=== PATIENT | male | born 1945 | race Caucasian/White ===

== ENCOUNTER → 2022-01-08 | Outpatient (CLI) | payer OTHER ==
--- NOTE | 2022-01-08 14:13 | XR ---
EXAMINATION TYPE: XR shoulder limited RT DATE OF EXAM: 01/08/2022 1:58 PM INDICATION: Patient age:Male; 76 years old; Reason for study: M25.51 Pain in right shoulder; COMPARISON: None TECHNIQUE: The right shoulder was examined in the middle and scapular Y projections. . FINDINGS: Deformity of the right humeral head which limits evaluation for acute fracture. Degeneration changes of the before meals and glenohumeral joint. Calcification projects over the right axilla which may be in the scapula measuring 2.2 x 3.0 cm.. IMPRESSION: Right humeral head degeneration, superimposed fracture not entirely excluded given heterotrophic calc ifications and degeneration. Consider CT for complete evaluation of the right shoulder if there remai ns concern for fracture.
== END | disposition home or self-care (01) ==
LOC: RADXRMAIN 13:23
PROVIDERS: ATTEND Nurse Practitioner Family
DX: M25.511 Pain in right shoulder (principal)

== ENCOUNTER 2022-06-14 21:04 | Emergency (ER) | payer OTHER ==
[2022-06-14 21:14] VITALS: RESP 16; TEMP 97.6
--- NOTE | 2022-06-14 22:30 | ED ---
Fall HPI - General Chief Complaint: Fall Stated Complaint: Fall, Head Injury Time Seen by Provider: 06/14/22 21:13 Source: patient, EMS, RN notes reviewed, old records reviewed Mode of arrival: EMS Limitations: language barrier, altered mental status, physical limitation - History of Present Illness Initial Comments: This is a 77-year-old male DF for evaluation. Patient does suffer from mild mental status and dementia, patient does have history of recurrent occasional falls. Patient lives with granddaughter who brought to the hospital today. Patient did fall forward hitting head on Route potted plants. Did sustain significant laceration to the top of his head no loss of consciousness he is on blood thinners. No other injury from fall noted. 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 ROS Other: All systems not noted in ROS Statement are negative. General Exam - General Exam Comments Initial Comments: Patient does have a 3 cm laceration to his frontal aspect of his occiput. Significant bleeding, arterial bleeding from laceration Limitations: no limitations General appearance: alert, in no apparent distress Head exam: Present: atraumatic, normocephalic, normal inspection Eye exam: Present: normal appearance, PERRL, EOMI. Absent: scleral icterus, con junctival injection, periorbital swelling ENT exam: Present: normal exam, mucous membranes moist Neck exam: Present: normal inspection. Absent: tenderness, meningismus, lymphadenopathy Respiratory exam: Present: normal lung sounds bilaterally. Absent: respiratory distress, wheezes, rales, rhonchi, stridor Cardiovascular Exam: Present: regular rate, normal rhythm, normal heart sounds. Absent: systolic murmur, diastolic murmur, rubs, gallop, clicks GI/Abdominal exam: Present: soft, normal bowel sounds. Absent: distended, tenderness, guarding, rebound, rigid Extremities exam: Present: normal inspection, full ROM, normal capillary refill. Absent: tenderness, pedal edema, joint swelling, calf tenderness Back exam: Present: normal inspection Neurological exam: Present: alert, oriented X3, CN II-XII intact Psychiatric exam: Present: normal affect, normal mood Skin exam: Present: warm, dry, intact, normal color. Absent: rash Course Vital Signs 06/14/22 21:11 Temperature 97.6 F Pulse Rate 71 Respiratory 16 Rate Blood Pressure 196/85 O2 Sat by Pulse 96 Oximetry - Reevaluation(s) Reevaluation #1: 06/14/22 22:25 Medical record is reviewed Reevaluation #2: 06/14/22 22:25 Patient's bleeding is resolved here in the ER Patient's bleeding was stopped using both marisa as well as absorbable figure 8 sutures Reevaluation #3: 06/14/22 22:26 Patient informed results questions answered no syncope here in the ER Reevaluation #4: 06/14/22 22:26 Was pt. sent in by a medical professional or institution? @ -no Did you speak to anyone other than the patient for history? @ -yes family at bedside Did you review nursing and triage notes? @ -agree Were old charts reviewed? @ -yes Differential Diagnosis? @ -no EKG interpreted by me (3pts min.)? @ -no X-rays interpreted by me (1pt min.)? @ -no CT interpreted by me (1pt min.)? @ -no U/S interpreted by me (1pt. min.)? @ -no What testing was considered but not performed? (CT, X-rays, U/S, labs)? Why? @ no What meds were considered but not given? Why? @ -no Did you discuss the management of the patient with other professionals? @ -no Did you reconcile home meds? @ -no Was smoking cessation discussed for >3mins.? @ -no Was critical care preformed (if so, how long)? @ -no Were there social determinants of health that impacted care today? How? (Homelessness, low income, unemployed, alcoholism, drug addiction, transportation, low edu. Level, literacy, decrease access to med. care, [facility], rehab)? @ -no Was there de-escalation of care discussed even if they declined? (Discuss DNR or withdrawal of care, Hospice)? @ -no What co-morbidities impacted this encounter? (DM, HTN, Smoking, COPD, CAD, Cancer, CVA, Hep., AIDS, mental health diagnosis, sleep apnea, morbid obesity)? @ -no Was patient admitted / discharged? @ -dc Undiagnosed new problem with uncertain prognosis? @ -no Drug Therapy requiring intensive monitoring for toxicity (Heparin, Nitro, Insulin, Cardizem)? @ -no Were any procedures done? @ -sutures and marisa Diagnosis/symptom? @ -fall, scalp laceration Acute, or Chronic, or Acute on Chronic? @ -acute Uncomplicated (without systemic symptoms) or Complicated (systemic symptoms)? @ -complicated w arterial bleed Side effects of treatment? @ -no Exacerbation, Progression, or Severe Exacerbation] @ -no Poses a threat to life or bodily function? @ -no Procedures - Laceration Laceration #1 Consent Obtained: verbal consent Indication: laceration Site: scalp Size (cm): 3 Description: linear Depth: simple, single layer Sedation/Analgesia: midazolam Anesthesia Technique: local infiltration Type of Sutures: vicryl Size of Sutures: 5-0, other Complications: pain Patient Tolerated Procedure: well Medical Decision Making - Medical Decision Making 77 male to the emergency department for evaluation patient presents today for evaluation in regards to fall from standing mechanical fall from standing, did sustain laceration to his scalp which is repaired here in the ER. Laceration was 3 cm in length. Patient also had suture repair of arterial laceration. - Radiology Data Radiology results: report reviewed (CT brain C-spine negative for acute injury), image reviewed Disposition Clinical Impression: Fall, Scalp laceration, Arterial hemorrhage Disposition: HOME SELF-CARE Condition: Good Instructions (If sedation given, give patient instructions): Fall Prevention for Older Adults (ED) Is patient prescribed a controlled substance at d/c from ED?: No Referrals: None,Stated [Primary Care Provider] - 1-2 days Time of Disposition: 22:50
[2022-06-14 23:26] VITALS: BP 164/92; PULSE 78
--- NOTE | 2022-06-14 23:35 | CT ---
EXAMINATION TYPE: CT brain christian mandel DATE OF EXAM: 06/14/2022 COMPARISON: None HISTORY: fall CT DLP: 1539.[address] of the brain was performed. The ventricles, basal cisterns and sulci overlying the cerebral convexities demonstrate mild enlargem ent. Remote insult right MCA territory. There is no evidence for intracranial hemorrhage or sulcal effacement. There is decreased attenuatio n about the periventricular white matter and deep white matter of both cerebral hemispheres, compatib le with chronic small vessel ischemia. No mass effects are seen. If symptoms persist consider MRI. Osseous calvarium is intact. There is a frontal scalp hematoma and laceration with skin marisa in pl [place]. IMPRESSION: 1. Age related atrophic and chronic small vessel ischemic change without acute intracranial process seen at this time. CT Cervical Spine: Unenhanced CT of the cervical spine was performed with bone and soft tissue window settings submitted . Coronal and sagittal reconstruction is obtained. There is normal alignment and prevertebral soft tissues. No evidence for acute cervical fracture . Scattered degenerative disc disease and spondylosis. Biapical scarring. IMPRESSION: 1. No evidence for acute fracture or subluxation of the cervical spine.
== END 2022-06-14 23:57 | disposition home or self-care (01) ==
LOC: EC 21:04
DX: S01.01XA Laceration without foreign body of scalp, initial encounter (principal); R58 Hemorrhage, not elsewhere classified; Z88.8 Allergy status to other drugs, medicaments and biological substances; W01.0XXA Fall on same level from slipping, tripping and stumbling without subsequent striking against object, initial encounter; Y92.009 Unspecified place in unspecified non-institutional (private) residence as the place of occurrence of the external cause
CPT/HCPCS: 12002; 70450; 72125; 99285

== ENCOUNTER 2022-07-23 13:08 | Inpatient (IN) | payer OTHER ==
--- NOTE | 2022-07-23 14:12 | ED ---
Eye Problem HPI - General Source: patient Mode of arrival: ambulatory Limitations: no limitations <Mahi Fleming - Last Filed: 07/23/22 15:57> - History of Present Illness chief complaint: eye pain, eye redness Onset Description: gradual Location: left eye Place: home If Injury: none Eye Symptoms: redness, pain, discharge, blurry vision Severity: moderate Severity scale (1-10): 8 If Pain, Quality: aching Consistency: constant Associated Symptoms: none Treatments Prior to Arrival: none <Justin Riddle - Last Filed: 07/23/22 16:47> - General Chief complaint: Eye Problems Stated complaint: left eye redness/left ear pain Time Seen by Provider: 07/23/22 13:58 - History of Present Illness Initial comments: Patient is 77-year-old male presenting to the emergency room with a caregiver from [place] for further evaluation of redness, pain and swelling to his left eye which began suddenly earlier today. He is also complaining of persistent pain ongoing for a few weeks to his left ear. He was treated for cerumen impaction and debrox drops. He reports some unsteadiness in his gait but he relates this to his ear; he denies any tinnitus and has chronic severe hearing loss. He denies any trauma. He does report some vision impairment in the left eye but is able to see. He denies any headache, dizziness, new focal neurological deficits, changes in chronic left-sided facial droop, chest pain, shortness of breath, fevers or chills. He has a past medical history significant for diabetes, TBI, hypertension and hyperlipidemia. (Mahi Fleming) - Related Data Allergies Allergy/AdvReac Type Severity Reaction Status Date / Time nkda Allergy Unknown Uncoded 07/23/22 13:19 Review of Systems ROS Other: All systems not noted in ROS Statement are negative. <Mahi Fleming - Last Filed: 07/23/22 15:57> ROS Other: All systems not noted in ROS Statement are negative. <Justin Riddle - Last Filed: 07/23/22 16:47> ROS Statement: Those systems with pertinent positive or pertinent negative responses have been documented in the HPI. Past Medical History Past Medical History: Diabetes Mellitus, Hyperlipidemia, Hypertension Additional Past Medical History / Comment(s): TBI History of Any Multi-Drug Resistant Organisms: None Reported Past Surgical History: Tonsillectomy Past Psychological History: No Psychological Hx Reported Smoking Status: Former smoker Past Alcohol Use History: None Reported Past Drug Use History: None Reported <LonnieMahi - Last Filed: 07/23/22 15:57> General Exam Limitations: no limitations Head exam: Present: atraumatic, other (Left mouth droop chronic) Eye exam: Present: conjunctival injection, periorbital swelling, periorbital tenderness. Absent: PERRL, EOMI, scleral icterus, nystagmus Pupils: Present: miosis (bilateral) Expanded IOP (R) in mmH IOP (L) in mmH IOP measured with: [employer] ENT exam: Present: normal external ear exam Expanded Ear exam: Present: other (Very hard of hearing) TM/Canal exam: Erythema: Left TM, Canal Tenderness: Left TM Neck exam: Present: normal inspection, full ROM Respiratory exam: Present: normal lung sounds bilaterally. Absent: respiratory distress, wheezes, rales, rhonchi, stridor Cardiovascular Exam: Present: regular rate, normal rhythm, normal heart sounds. Absent: systolic murmur, diastolic murmur, rubs, gallop, clicks GI/Abdominal exam: Present: soft, normal bowel sounds. Absent: distended, tenderness, guarding, rebound, rigid Extremities exam: Present: normal inspection, full ROM, pedal edema (trace bilateral). Absent: tenderness Back exam: Present: normal inspection Neurological exam: Present: alert, oriented X3, other (Poor history) Psychiatric exam: Present: flat affect Skin exam: Present: other (Ocular abnormality as indicated above.) <Mahi Fleming - Last Filed: 07/23/22 15:57> Course <Justin Riddle - Last Filed: 07/23/22 16:47> Vital Signs 07/23/22 13:10 Temperature 97.2 F L Pulse Rate 67 Respiratory 20 Rate Blood Pressure 171/72 O2 Sat by Pulse 96 Oximetry - Reevaluation(s) Reevaluation #1: 07/23/22 16:46 Medical records reviewed (Justin Riddle) Reevaluation #2: 07/23/22 16:46 Patient symptoms are improved (Justin Riddle) Reevaluation #3: 07/23/22 16:46 Patient informed results questions answered (Justin Riddle) - Consultations Consultation #1: Spoke with sound regarding symptoms patient will be admitted (Justin Riddle) Medical Decision Making - Lab Data Result diagrams: 07/23/22 14:36 07/23/22 14:36 <Mahi Fleming - Last Filed: 07/23/22 15:57> - Lab Data Result diagrams: 07/23/22 14:36 07/23/22 14:36 - Radiology Data Radiology results: report reviewed (CT orbits does show periorbital cellulitis), image reviewed <Justin Riddle - Last Filed: 07/23/22 16:47> - Medical Decision Making Was pt. sent in by a medical professional or institution ([facility], PURCHASING COORDINATOR, urgent care, hospital, or alf...) When possible be specific @ -[No] Did you speak to anyone other than the patient for history (EMS, parent, family, police, friend...)? What history was obtained from this source @ -Yes, brief history known to [facility] provider with patient obtained in addition to information available on chart and with patient. Did you review nursing and triage notes (agree or disagree)? Why? @ -[I reviewed and agree with nursing and triage notes] Were old charts reviewed (outside hosp., previous admission, EMS record, old EKG, old radiological studies, urgent care reports/EKG's, alf records)? Report findings @ -Yes, reviewed records from [place] which has home medication list and picture outpatient with previously present left facial droop. Differential Diagnosis (chest pain, altered mental status, abdominal pain women, abdominal pain men, vaginal bleeding, weakness, fever, dyspnea, syncope, headache, dizziness, GI bleed, back pain, seizure, CVA, palpatations, mental health, musculoskeletal)? @ -Differential ocular pain and swelling: Ocular trauma, orbital cellulitis, retinal detachment, viral conjunctivitis, bacterial conjunctivitis, ALLERGIC conjunctivitis, blepharitis, viscous hemorrhage, ruptured globe this is not meant to be an all-inclusive list. EKG interpreted by me (3pts min.). @ -[None done] X-rays interpreted by me (1pt min.). @ -[None done] CT interpreted by me (1pt min.). @ -Computed tomography scan of orbits with contrast ordered and pending. U/S interpreted by me (1pt. min.). @ -[None done] What testing was considered but not performed or refused? (CT, X-rays, U/S, labs)? Why? @ -[None] What meds were considered but not given or refused? Why? @ -[None] Did you discuss the management of the patient with other professionals (professionals i.e. , PA, PURCHASING COORDINATOR, lab, RT, psych nurse, social service agency director, enterprise infrastructure architect, teacher, chief investment officer, adult protective caseworker)? Give summary @ -[No] Was smoking cessation discussed for >3mins.? @ -[No] Was critical care preformed (if so, how long)? @ -[No] Were there social determinants of health that impacted care today? How? (Homelessness, low income, unemployed, alcoholism, drug addiction, transportation, low edu. Level, literacy, decrease access to med. care, prison, rehab)? @ -[No] Was there de-escalation of care discussed even if they declined (Discuss DNR or withdrawal of care, Hospice)? DNR status @ -[No] What co-morbidities impacted this encounter? (DM, HTN, Smoking, COPD, CAD, Cancer, CVA, ARF, Chemo, Hep., AIDS, mental health diagnosis, sleep apnea, morbid obesity)? @ -[None] Was patient admitted / discharged? Hospital course, mention meds given and route, prescriptions, significant lab abnormalities, going to OR and other pertinent info. @ -77-year-old male presenting to the emergency room with a caregiver from [place] for further evaluation of redness, pain and swelling to his left eye which began suddenly earlier today. He is also complaining of persistent pain ongoing for a few weeks to his left ear. Visual acuity in. However there is concern regarding ability to understand and complete visual acuity due to severe hard of hearing and previous TBI. Intraocular pressures normal. High concern for orbital cellulitis will obtain laboratory studies of CBC, CMP, lactic acid, blood cultures and order a CT of the orbits with contrast. Vital signs stable at this time no indication for IV hydration or IV antibiotics. Pain level stable and denies any analgesic need. CBC with white count elevated 10.7, neutrophils 8.0 no other abnormalities on CBC, coags normal. CMP sodium level 174 glucose elevated 174 otherwise no a bnormalities, normal renal function, normal hepatic function. Lactic acid normal at 1.0. Awaiting computed tomography scan for completion of evaluation and determination of treatment. Case discussed with and transferred to Dr. Riddle for completion of workup and disposition. (Mahi Fleming) 77 male he presents today for evaluation regards to left preseptal and periorbi harry cellulitis. Patient admitted for IV antibiotics (Justin Riddle) - Lab Data Lab Results 07/23/22 07/23/22 07/23/22 Range/Units 14:36 14:36 14:36 WBC 10.7 H (3.8-10.6) k/uL RBC 4.44 (4.30-5.90) m/uL Hgb 14.3 (13.0-17.5) gm/dL Hct 43.2 (39.0-53.0) % MCV 97.4 (80.0-100.0) fL MCH 32.2 (25.0-35.0) pg MCHC 33.1 (31.0-37.0) g/dL RDW 12.9 (11.5-15.5) % Plt Count 181 (150-450) k/uL MPV 8.5 Neutrophils % 75 % Lymphocytes % 15 % Monocytes % 5 % Eosinophils % 3 % Basophils % 1 % Neutrophils # 8.0 H (1.3-7.7) k/uL Lymphocytes # 1.6 (1.0-4.8) k/uL Monocytes # 0.5 (0-1.0) k/uL Eosinophils # 0.4 (0-0.7) k/uL Basophils # 0.1 (0-0.2) k/uL PT 10.2 (9.0-12.0) sec INR 1.0 (<1.2) Sodium 136 L (137-145) mmol/L Potassium 4.4 (3.5-5.1) mmol/L Chloride 102 (98-107) mmol/L Carbon Dioxide 25 (22-30) mmol/L Anion Gap 9 mmol/L BUN 17 (9-20) mg/dL Creatinine 0.68 (0.66-1.25) mg/dL Est GFR (CKD-EPI)AfAm >90 (>60 ml/min/1.73 sqM) Est GFR (CKD-EPI)NonAf >90 (>60 ml/min/1.73 sqM) Glucose 174 H (74-99) mg/dL Plasma Lactic Acid Luc (0.7-2.0) mmol/L Calcium 9.5 (8.4-10.2) mg/dL Total Bilirubin 0.6 (0.2-1.3) mg/dL AST 28 (17-59) U/L ALT 25 (4-49) U/L Alkaline Phosphatase 79 (38-126) U/L Total Protein 6.8 (6.3-8.2) g/dL Albumin 4.0 (3.5-5.0) g/dL 07/23/22 Range/Units 14:36 WBC (3.8-10.6) k/uL RBC (4.30-5.90) m/uL Hgb (13.0-17.5) gm/dL Hct (39.0-53.0) % MCV (80.0-100.0) fL MCH (25.0-35.0) pg MCHC (31.0-37.0) g/dL RDW (11.5-15.5) % Plt Count (150-450) k/uL MPV Neutrophils % % Lymphocytes % % Monocytes % % Eosinophils % % Basophils % % Neutrophils # (1.3-7.7) k/uL Lymphocytes # (1.0-4.8) k/uL Monocytes # (0-1.0) k/uL Eosinophils # (0-0.7) k/uL Basophils # (0-0.2) k/uL PT (9.0-12.0) sec INR (<1.2) Sodium (137-145) mmol/L Potassium (3.5-5.1) mmol/L Chloride (98-107) mmol/L Carbon Dioxide (22-30) mmol/L Anion Gap mmol/L BUN (9-20) mg/dL Creatinine (0.66-1.25) mg/dL Est GFR (CKD-EPI)AfAm (>60 ml/min/1.73 sqM) Est GFR (CKD-EPI)NonAf (>60 ml/min/1.73 sqM) Glucose (74-99) mg/dL Plasma Lactic Acid Luc 1.0 (0.7-2.0) mmol/L Calcium (8.4-10.2) mg/dL Total Bilirubin (0.2-1.3) mg/dL AST (17-59) U/L ALT (4-49) U/L Alkaline Phosphatase (38-126) U/L Total Protein (6.3-8.2) g/dL Albumin (3.5-5.0) g/dL Disposition <Mahi Fleming - Last Filed: 07/23/22 15:57> Is patient prescribed a controlled substance at d/c from ED?: No Time of Disposition: 16:45 <Justin Riddle - Last Filed: 07/23/22 16:47> Clinical Impression: Preseptal cellulitis, Periorbital cellulitis, Cellulitis of left eyelid Disposition: ADMITTED IP TO THIS HOSP Condition: Good Referrals: Cristobal Brunner MD [Primary Care Provider] - 1-2 days
[2022-07-23 14:55] LABS: Basophils # (A) 0.1 k/uL (0-0.2); Basophils % (A) 1 %; Eosinophils # (A) 0.4 k/uL (0-0.7); Eosinophils % (A) 3 %; HCT 43.2 % (39.0-53.0); HGB 14.3 gm/dL (13.0-17.5); Lymphocytes # (A) 1.6 k/uL (1.0-4.8); Lymphocytes % (A) 15 %; MCH 32.2 pg (25.0-35.0); MCHC 33.1 g/dL (31.0-37.0); MCV 97.4 fL (80.0-100.0); Mean Platelet Volume 8.5; Monocytes # (A) 0.5 k/uL (0-1.0); Monocytes % (A) 5 %; Neutrophils % (A) 75 %; Platelet Count 181 k/uL (150-450); RBC 4.44 m/uL (4.30-5.90); RDW 12.9 % (11.5-15.5); WBC 10.7 k/uL (3.8-10.6)
[2022-07-23 14:57] LABS: ALT 25 U/L (4-49); African American GFR (CKD) >90 (>60 ml/min/1.73 sqM); Anion Gap 9 mmol/L; Blood Urea Nitrogen 17 mg/dL (9-20); Calcium 9.5 mg/dL (8.4-10.2); Carbon Dioxide 25 mmol/L (22-30); Chloride 102 mmol/L (98-107); Glucose 174 mg/dL (74-99); Non-African American GFR(CKD) >90 (>60 ml/min/1.73 sqM); Sodium 136 mmol/L (137-145); Total Bilirubin 0.6 mg/dL (0.2-1.3); Total Protein 6.8 g/dL (6.3-8.2)
[2022-07-23 15:01] LABS: Prothrombin Time 10.2 sec (9.0-12.0)
[2022-07-23 15:31] LABS: AST 28 U/L (17-59); Alkaline Phosphatase 79 U/L (38-126); Potassium 4.4 mmol/L (3.5-5.1)
--- NOTE | 2022-07-23 16:23 | CT ---
EXAMINATION TYPE: CT orbits w con DATE OF EXAM: 07/23/2022 COMPARISON: None HISTORY: 77-year-old male left eye pain with swelling and erythema TECHNIQUE: Contiguous axial scanning of the orbits performed with IV Contrast, patient injected with 100 mL of Isovue 300. Coronal/sagittal reconstructions performed. CT DLP: 442.3 mGycm Automated exposure control for dose reduction was used. FINDINGS: Extensive encephalomalacia in the right cerebral hemisphere within the MCA territory compatible with prior infarct. There is leftward septal deviation. Scattered trace mucosal thickening throughout the ethmoid air savage ls and maxillary sinuses. There is preseptal soft tissue swelling on the left especially on the lateral aspect and involving th e lacrimal gland. Low. Symmetric. No post septal abnormality or extraocular muscle abnormality is see n. There are no retained radiopaque foreign body is seen. IMPRESSION: FINDINGS OF LEFT-SIDED PRESEPTAL CELLULITIS. INFLAMMATION EXTENDS TO INVOLVE THE LEFT LACRIMAL GLAND WELL. OTHERWISE, NO POST SEPTAL EXTENSION SEEN.
[2022-07-23] MEDS ORDERED: VANCOMYCIN IV PER PHARMACY 1 EACH MISC MISCELLANE PRN (16:42)
[2022-07-23] MEDS ORDERED: DEXAMETHASONE SOD PHOSPHATE 10 MG/ML 1 ML VIAL IVP STA (16:42)
[2022-07-23] MEDS ORDERED: VANCOMYCIN 1,500 MG in SODIUM CHLORIDE 0.9% 500 ML 500 ML IVPB STA (16:49)
[2022-07-23] MEDS ORDERED: NALOXONE 0.4 MG/ML 1 ML VIAL IV PRN ×2 (17:16→17:47)
[2022-07-23] MEDS ORDERED: ACETAMINOPHEN TAB 325 MG TAB PO PRN (17:16)
[2022-07-23] MEDS ORDERED: DEXTROSE 50% SYRINGE 50 ML IVP PRN ×2 (17:17)
--- NOTE | 2022-07-23 17:22 | P.HPIM ---
History of Present Illness H&P Date: 07/23/22 Patient is a 77-year-old male with a history of hypertension, dyslipidemia, diabetes presenting with eye swelling and pain. He claims that he started within 24 hours. He has some pain with movement. He denies any significant visual loss. He denies any fevers or chills. He denies any chest pain, shortness of breath, abdominal pain, nausea, vomiting or urinary complaints. He does note some ear fullness on the left side as well. In the ED, temperature was 97.2, pulse 67, respiratory rate 20, blood pressure 171/72, saturating at 96% on room air. Head/or with CT shows of sided preseptal cellulitis, inflammation extends to involve the left lacrimal gland as well, otherwise no septal extension seen. WBC 10.7, hemoglobin 14.3, sodium 136, potassium 4.4, creatinine 0.68, glucose 174. Patient started on vancomycin and ceftriaxone. Patient being admitted for further management, case discussed with ER physician. Pertinent positives and negatives as discussed in HPI, a complete review of systems was performed and all other systems are negative. Patient seen and examined at bedside. Vital signs reviewed General: nontoxic, no distress, appears at stated age Derm: warm, dry Head: atraumatic, normocephalic, symmetric Eyes: EOMI, no lid lag, subconjunctival hemorrhages on the left, pupils equal round reactive to light, left eye periorbital edema ENT: Nose and ears atraumatic Neck: No thyromegaly, supple Mouth: no lip lesion, mucus membranes moist Cardiovascular: S1S2 reg, no murmur, no edema Lungs: clear to auscultation bilateral, no rhonchi, no rales, no wheeze, no accessory muscle use Abdominal: soft, nontender to palpation, no guarding, no appreciable o rganomegaly Ext: no gross muscle atrophy, muscle strength muscle strength 5 out of 5 in all 4 extremities, no contractures Neuro: CN II-XII grossly intact Psych: Alert, oriented, appropriate affect Assessment/Plan: Active: Preseptal cellulitis on left eye Left-sided subconjunctival hemorrhage Type 2 diabetes -Continue ceftriaxone 2 g daily, and vancomycin, monitor for renal toxicity, daily BMP -Blood cultures pending, ESR and CRP pending -If worsening vision, will need ophthalmology consult stat -Sliding scale insulin Chronic: Hypertension Seizure disorder Dyslipidemia The patient is admitted with an anticipated greater than 2 midnight stay as inpa tient status for evaluation of preseptal cellulitis. Surrogate decision-maker: Daughter CODE STATUS: full Code DVT prophylaxis: SCDs Anticipated discharge date: Pending clinical course Anticipated discharge place: Pending clinical course A total of 55 minutes was spent on the care of this complex patient more than 50% of the time was spent in counseling and care coordination. Past Medical History Past Medical History: Diabetes Mellitus, Hyperlipidemia, Hypertension Additional Past Medical History / Comment(s): TBI History of Any Multi-Drug Resistant Organisms: None Reported Past Surgical History: Tonsillectomy Past Psychological History: No Psychological Hx Reported Smoking Status: Former smoker Past Alcohol Use History: None Reported Past Drug Use History: None Reported Medications and Allergies Allergies Allergy/AdvReac Type Severity Reaction Status Date / Time nkda Allergy Unknown Uncoded 07/23/22 13:19 Physical Exam Vitals: Vital Signs Temp Pulse Resp BP Pulse Ox 07/23/22 13:10 97.2 F L 67 20 171/72 96 Intake and Output 07/23/22 07/23/22 07/23/22 06:59 14:59 22:59 Other: Weight 86.364 kg Results CBC & Chem 7: 07/23/22 14:36 07/23/22 14:36 Labs: Abnormal Lab Results - Last 24 Hours (Table) 07/23/22 07/23/22 Range/Units 14:36 14:36 WBC 10.7 H (3.8-10.6) k/uL Neutrophils # 8.0 H (1.3-7.7) k/uL Sodium 136 L (137-145) mmol/L Glucose 174 H (74-99) mg/dL
[2022-07-23 17:34] LABS: Glucose,Whole Blood 191 mg/dL (70-110)
[2022-07-23] MEDS ORDERED: ONDANSETRON 4 MG/2 ML VIAL IVP PRN (17:47)
[2022-07-23] MEDS ORDERED: MORPHINE SULFATE 4 MG/ML SYRINGE IV PRN (17:47)
[2022-07-23] MEDS: INSULIN ASPART (NovoLOG) 100 UNIT/ML VIAL SQ SCH ×2 (18:36→22:32)
[2022-07-23] MEDS ORDERED: hydrALAZINE HCL 20 MG/ML 1 ML VIAL IVP STA (18:47)
[2022-07-23 21:40] LABS: Glucose,Whole Blood 305 mg/dL (70-110)
[2022-07-23] MEDS: ATORVASTATIN 40 MG TAB PO SCH (22:32)
[2022-07-23] MEDS: levETIRAcetam 500 MG TAB PO SCH (22:32)
[2022-07-23] MEDS: SODIUM CHLORIDE 0.9% 1,000 ML IV SCH (22:50)
[2022-07-24 06:03] LABS: Glucose,Whole Blood 203 mg/dL (70-110)
[2022-07-24] MEDS: INSULIN ASPART (NovoLOG) 100 UNIT/ML VIAL SQ SCH ×4 (06:17→20:40)
[2022-07-24] MEDS: INSULIN DETEMIR (LEVEMIR) 100 UNIT/ML SYR SQ SCH (06:18)
[2022-07-24] MEDS: VANCOMYCIN 1,500 MG in SODIUM CHLORIDE 0.9% 500 ML 500 ML IVPB SCH ×2 (06:35→17:24)
[2022-07-24] MEDS: ASPIRIN 81 MG PO SCH (09:03)
[2022-07-24] MEDS: lisinopriL 20 MG TAB PO SCH (09:03)
[2022-07-24] MEDS: levETIRAcetam 500 MG TAB PO SCH ×2 (09:03→20:40)
[2022-07-24] MEDS: SODIUM CHLORIDE 0.9% 1,000 ML IV SCH ×2 (09:03→20:41)
[2022-07-24 09:52] LABS: Basophils # (A) 0.03 X 10*3/uL (0.00-0.10); Basophils % (A) 0.2 %; Eosinophils # (A) 0 X 10*3/uL (0.04-0.35); Eosinophils % (A) 0 %; HCT 41.7 % (39.6-50.0); HGB 14.1 g/dL (13.0-17.0); Immature Grans, Automated 0.6 %; Lymphocytes % (A) 6.5 %; MCH 32.1 pg (27.0-32.0); MCHC 33.8 g/dL (32.0-37.0); Mean Platelet Volume 11.5 fL (9.5-12.2); Monocytes # (A) 0.35 X 10*3/uL (0.20-1.00); Monocytes % (A) 2.8 %; NRBC Per 100 WBC 0 /100 WBCS (0.0-0.0); Neutrophils # (A) 11.11 X 10*3/uL (1.80-7.70); Neutrophils % (A) 89.9 %; Platelet Count 202 X 10*3/uL (140-440); RBC 4.39 X 10*6/uL (4.40-5.60); RDW 12.6 % (11.5-14.5); WBC 12.36 X 10*3/uL (4.50-10.00)
[2022-07-24 10:12] LABS: African American GFR (CKD) 109.8 (60.0-200.0); Anion Gap 8.6 mmol/L (10.00-18.00); BUN/Creat Ratio 22.96 Ratio (12.00-20.00); Blood Urea Nitrogen 14.1 mg/dL (9.0-27.0); Calcium 9.9 mg/dL (8.7-10.3); Carbon Dioxide 26.6 mmol/L (20.0-27.5); Non-African American GFR(CKD) 94.7 (60.0-200.0); Potassium 4.4 mmol/L (3.5-5.5)
[2022-07-24 11:18] LABS: Glucose,Whole Blood 235 mg/dL (70-110)
--- NOTE | 2022-07-24 12:53 | P.PN ---
Subjective Progress Note Date: 07/24/22 Hospital Course: 77-year-old male with a history of hypertension, dyslipidemia, diabetes presenting with eye swelling and pain. In the ED, temperature was 97.2, pulse 67, respiratory rate 20, blood pressure 171/72, saturating at 96% on room air. Head/or with CT shows of sided preseptal cellulitis, inflammation extends to involve the left lacrimal gland as well, otherwise no septal extension seen. WBC 10.7, hemoglobin 14.3, sodium 136, potassium 4.4, creatinine 0.68, glucose 174. Patient started on vancomycin and ceftriaxone. Subjective: Patient seen and examined at bedside. No acute events overnight. He denies any changes in vision. Pertinent positives and negatives as discussed above, a complete review of systems was performed and all other systems are negative. Vitals Signs Reviewed. General: nontoxic, no distress, appears at stated age Derm: warm, dry Head: atraumatic, normocephalic, symmetric Eyes: EOMI, no lid lag, subconjunctival hemorrhages on the left, pupils equal round reactive to light, left eye periorbital edema ENT: Nose and ears atraumatic Neck: No thyromegaly, supple Mouth: no lip lesion, mucus membranes moist Cardiovascular: S1S2 reg, no murmur, no edema Lungs: clear to auscultation bilateral, no rhonchi, no rales, no wheeze, no accessory muscle use Abdominal: soft, nontender to palpation, no guarding, no appreciable organomegaly Ext: no gross muscle atrophy, muscle strength muscle strength 5 out of 5 in all 4 extremities, no contractures Neuro: CN II-XII grossly intact Psych: Alert, oriented, appropriate affect Data Reviewed Today: Pertinent Labs: WBC 12.36, hemoglobin 14.1, creatinine 0.6, A1c 7.3, ESR 5, CRP 0.7 Imaging: No new imaging Assessment and Plan: Active: Preseptal cellulitis on left eye Left-sided subconjunctival hemorrhage Type 2 diabetes, A1c 7.3 -Continue ceftriaxone 2 g daily, and vancomycin, monitor for renal toxicity, daily BMP -Negative inflammatory markers, blood cultures pending -If worsening vision, will need ophthalmology consult stat -Sliding scale insulin, no changes Chronic: Hypertension Seizure disorder Dyslipidemia DVT ppx: SCD Code status: Full code Anticipated discharge place: Assisted living Anticipated discharge time: Likely tomorrow Objective - Vital Signs Vital signs: Vital Signs Temp 97.5 F L 07/24/22 08:00 Pulse 79 07/24/22 08:00 Resp 18 07/24/22 08:00 BP 161/79 07/24/22 08:00 Pulse Ox 97 07/24/22 08:00 FiO2 Intake & Output 07/23/22 07/24/22 07/24/22 18:59 06:59 18:59 Weight 86.364 kg 86.364 kg Other: # Voids 4 - Labs CBC & Chem 7: 07/24/22 06:46 07/24/22 06:46 Labs: Abnormal Lab Results - Last 24 Hours (Table) 07/23/22 07/23/22 07/23/22 Range/Units 14:36 14:36 17:31 WBC 10.7 H (3.8-10.6) k/uL RBC (4.40-5.60) X 10*6/uL MCH (27.0-32.0) pg Immature Gran # (0.00-0.04) X 10*3/uL Neutrophils # 8.0 H (1.3-7.7) k/uL Lymphocytes # (0.90-5.00) X 10*3/uL Eosinophils # (0.04-0.35) X 10*3/uL Sodium 136 L (137-145) mmol/L Anion Gap (10.00-18.00) mmol/L BUN/Creatinine Ratio (12.00-20.00) Ratio Glucose 174 H (74-99) mg/dL POC Glucose (mg/dL) 191 H (70-110) mg/dL Hemoglobin A1c (0.0-6.0) % 07/23/22 07/23/22 07/24/22 Range/Units 18:32 21:39 06:00 WBC (3.8-10.6) k/uL RBC (4.40-5.60) X 10*6/uL MCH (27.0-32.0) pg Immature Gran # (0.00-0.04) X 10*3/uL Neutrophils # (1.3-7.7) k/uL Lymphocytes # (0.90-5.00) X 10*3/uL Eosinophils # (0.04-0.35) X 10*3/uL Sodium (137-145) mmol/L Anion Gap (10.00-18.00) mmol/L BUN/Creatinine Ratio (12.00-20.00) Ratio Glucose (74-99) mg/dL POC Glucose (mg/dL) 305 H 203 H (70-110) mg/dL Hemoglobin A1c 7.3 H (0.0-6.0) % 07/24/22 07/24/22 07/24/22 Range/Units 06:46 06:46 11:16 WBC 12.36 H (3.8-10.6) k/uL RBC 4.39 L (4.40-5.60) X 10*6/uL MCH 32.1 H (27.0-32.0) pg Immature Gran # 0.07 H (0.00-0.04) X 10*3/uL Neutrophils # 11.11 H (1.3-7.7) k/uL Lymphocytes # 0.80 L (0.90-5.00) X 10*3/uL Eosinophils # 0 L (0.04-0.35) X 10*3/uL Sodium (137-145) mmol/L Anion Gap 8.60 L (10.00-18.00) mmol/L BUN/Creatinine Ratio 22.96 H (12.00-20.00) Ratio Glucose 214 H (74-99) mg/dL POC Glucose (mg/dL) 235 H (70-110) mg/dL Hemoglobin A1c (0.0-6.0) %
[2022-07-24 17:01] LABS: Glucose,Whole Blood 244 mg/dL (70-110)
[2022-07-24 20:16] LABS: Glucose,Whole Blood 206 mg/dL (70-110)
[2022-07-24] MEDS: ATORVASTATIN 40 MG TAB PO SCH (20:40)
[2022-07-25] MEDS: SODIUM CHLORIDE 0.9% 1,000 ML IV SCH (00:12)
[2022-07-25] MEDS ORDERED: VANCOMYCIN TROUGH DUE 1 EACH MISC MISCELLANE ONE (05:00)
[2022-07-25] MEDS: INSULIN ASPART (NovoLOG) 100 UNIT/ML VIAL SQ SCH ×2 (06:03→12:19)
[2022-07-25 06:04] LABS: Glucose,Whole Blood 126 mg/dL (70-110)
[2022-07-25] MEDS: INSULIN DETEMIR (LEVEMIR) 100 UNIT/ML SYR SQ SCH (06:34)
[2022-07-25 07:52] LABS: Basophils # (A) 0.1 k/uL (0-0.2); Basophils % (A) 0 %; Eosinophils # (A) 0.2 k/uL (0-0.7); Eosinophils % (A) 2 %; HCT 38.1 % (39.0-53.0); Lymphocytes # (A) 2.7 k/uL (1.0-4.8); Lymphocytes % (A) 22 %; MCH 32.9 pg (25.0-35.0); MCHC 34.1 g/dL (31.0-37.0); MCV 96.6 fL (80.0-100.0); Mean Platelet Volume 8.6; Monocytes # (A) 0.7 k/uL (0-1.0); Monocytes % (A) 5 %; Neutrophils # (A) 8.5 k/uL (1.3-7.7); Neutrophils % (A) 69 %; Platelet Count 165 k/uL (150-450); RBC 3.95 m/uL (4.30-5.90); RDW 12.7 % (11.5-15.5); WBC 12.3 k/uL (3.8-10.6)
[2022-07-25 08:08] LABS: African American GFR (CKD) >90 (>60 ml/min/1.73 sqM); Anion Gap 6 mmol/L; Blood Urea Nitrogen 11 mg/dL (9-20); Calcium 8.9 mg/dL (8.4-10.2); Carbon Dioxide 25 mmol/L (22-30); Chloride 108 mmol/L (98-107); Glucose 132 mg/dL (74-99); Non-African American GFR(CKD) >90 (>60 ml/min/1.73 sqM); Potassium 3.8 mmol/L (3.5-5.1); Sodium 139 mmol/L (137-145)
[2022-07-25] MEDS: VANCOMYCIN 1,500 MG in SODIUM CHLORIDE 0.9% 500 ML 500 ML IVPB SCH (08:51)
[2022-07-25] MEDS: lisinopriL 20 MG TAB PO SCH (08:51)
[2022-07-25] MEDS: levETIRAcetam 500 MG TAB PO SCH (08:51)
[2022-07-25] MEDS: ASPIRIN 81 MG PO SCH (08:51)
--- NOTE | 2022-07-25 10:57 | P.DS ---
Providers Date of admission: 07/23/22 17:16 Expected date of discharge: 07/25/22 Attending physician: Mari Saul DO Primary care physician: Cristobal Brunner MD Hospital Course: Discharge Diagnosis: Preseptal cellulitis on left eye Left-sided subconjunctival hemorrhage Type 2 diabetes, A1c 7.3 Hospital Course: 77-year-old male with a history of hypertension, dyslipidemia, diabetes presenting with eye swelling and pain. In the ED, temperature was 97.2, pulse 67, respiratory rate 20, blood pressure 171/72, saturating at 96% on room air. Head/orbit CT shows of sided preseptal cellulitis, inflammation extends to involve the left lacrimal gland as well, otherwise no septal extension seen. WBC 10.7, hemoglobin 14.3, sodium 136, potassium 4.4, creatinine 0.68, glucose 174. Patient started on vancomycin and ceftriaxone. Patient has good extraocular movement, pupils are reactive, swelling is decreasing, no worsening subconjunctival hemorrhage . Patient to be discharged on oral antibiotics, he will follow up with ophthalmology outpatient. Plan communicated with daughter as well as PCP. Patient seen and examined at bedside. Vital signs reviewed and stable. General: nontoxic, no distress, appears at stated age Derm: warm, dry Head: atraumatic, normocephalic, symmetric Eyes: EOMI, no lid lag, subconjunctival hemorrhages on the left, pupils equal round reactive to light, left eye periorbital edema ENT: Nose and ears atraumatic Neck: No thyromegaly, supple Mouth: no lip lesion, mucus membranes moist Cardiovascular: S1S2 reg, no murmur, no edema Lungs: clear to auscultation bilateral, no rhonchi, no rales, no wheeze, no accessory muscle use Abdominal: soft, nontender to palpation, no guarding, no appreciable organomegaly Ext: no gross muscle atrophy, muscle strength muscle strength 5 out of 5 in all 4 extremities, no contractures Neuro: CN II-XII grossly intact Psych: Alert, oriented, appropriate affect A total of 33 minutes of time were spent preparing this complex discharge summary. Patient was discharged on 07/25/22 at 1003. Patient Condition at Discharge: Stable Plan - Discharge Summary Discharge Rx Participant: No New Discharge Prescriptions: New Amoxic-Pot Clav 875-125Mg [Augmentin 875-125] 1 tab PO Q12HR 7 Days #14 tab Continue lisinopriL [Zestril] 20 mg PO DAILY Insulin Detemir [Levemir Flexpen] 7 units SQ DAILY metFORMIN HCL ER [Glucophage XR] 500 mg PO BID Aspirin EC [Ecotrin Low Dose] 81 mg PO DAILY Lidocaine 5% Cream 1 applic TOPICAL BID Carbamide Peroxide [Debrox Otic] 5 drops RIGHT EAR BID Atorvastatin [Lipitor] 40 mg PO HS levETIRAcetam [Keppra] 500 mg PO Q12HR Melatonin 3 mg PO HS Acetaminophen Tab [Tylenol] 975 mg PO Q8H PRN PRN Reason: Pain Discharge Medication List Acetaminophen Tab [Tylenol] 975 mg PO Q8H PRN 07/23/22 [History] Aspirin EC [Ecotrin Low Dose] 81 mg PO DAILY 07/23/22 [History] Atorvastatin [Lipitor] 40 mg PO HS 07/23/22 [History] Carbamide Peroxide [Debrox Otic] 5 drops RIGHT EAR BID 07/23/22 [History] Insulin Detemir [Levemir Flexpen] 7 units SQ DAILY 07/23/22 [History] Lidocaine 5% Cream 1 applic TOPICAL BID 07/23/22 [History] Melatonin 3 mg PO HS 07/23/22 [History] levETIRAcetam [Keppra] 500 mg PO Q12HR 07/23/22 [History] lisinopriL [Zestril] 20 mg PO DAILY 07/23/22 [History] metFORMIN HCL ER [Glucophage XR] 500 mg PO BID 07/23/22 [History] Amoxic-Pot Clav 875-125Mg [Augmentin 875-125] 1 tab PO Q12HR 7 Days #14 tab 07/25/22 [Rx] Follow up Appointment(s)/Referral(s): Cristobal Brunner MD [Primary Care Provider] - 1-2 days (Office is closed at time of discharge. Please call for appointment.) Patient Instructions/Handouts: Periorbital Cellulitis in Adults (DC) Activity/Diet/Wound Care/Special Instructions: Please see your PCP and supervisor toy assembly. Discharge Disposition: OTHER INSTITUTION NOT DEFINED
[2022-07-25 11:50] LABS: Glucose,Whole Blood 164 mg/dL (70-110)
[2022-07-25 15:40] VITALS: BP 172/70; PULSE 61; RESP 18; TEMP 97.6
[2022-07-25] MEDS ORDERED: VANCOMYCIN 1,500 MG in SODIUM CHLORIDE 0.9% 500 ML 500 ML IVPB SCH (20:00)
== END 2022-07-25 15:45 | disposition home or self-care (01) | DRG 603 ==
LOC: EC 13:08 → 4SSUR 17:16
PROVIDERS: ADMIT Internal Medicine; ATTEND Internal Medicine
DX: L03.213 Periorbital cellulitis (principal); E11.9 Type 2 diabetes mellitus without complications; G40.909 Epilepsy, unspecified, not intractable, without status epilepticus; E78.5 Hyperlipidemia, unspecified; H11.32 Conjunctival hemorrhage, left eye; I10 Essential (primary) hypertension; H54.7 Unspecified visual loss; H91.90 Unspecified hearing loss, unspecified ear; R29.810 Facial weakness; Z79.4 Long term (current) use of insulin; Z79.84 Long term (current) use of oral hypoglycemic drugs; Z79.82 Long term (current) use of aspirin; Z79.899 Other long term (current) drug therapy; Z87.891 Personal history of nicotine dependence; Z87.820 Personal history of traumatic brain injury
CPT/HCPCS: 36415; 70481; 80048; 80053; 80202; 83036; 83605; 85025; 85610; 85652; 86140; 87040; 96365; 96366; 96375; 99285

== ENCOUNTER 2023-07-15 11:40 | Inpatient (IN) | payer OTHER ==
--- NOTE | 2023-07-15 12:18 | ED ---
General Adult HPI - General Chief complaint: Neuro Symptoms/Deficit Stated complaint: ABN labs Time Seen by Provider: 07/15/23 11:58 Source: patient Mode of arrival: ambulatory Limitations: no limitations - History of Present Illness Initial comments: Dictation was produced using [employer] dictation software. please excuse any grammatical, word or spelling errors. Chief Complaint: 78-year-old male brought to the emergency department for positive blood cultures History of Present Illness: Patient is an 78-year-old male he is a limited historian. He presents with home health care nurse who is also a limited historian. She sees the patient every day but does not know why he is here. She knows that he was in the hospital admitted recently for unknown reasons. Apparently there was someone who called our hospital states that patient was being sent here for positive blood cultures. From what is understood patient was admitted to [facility] for few days. He was discharged. Apparently patient had some gram-positive blood culture. Patient states that he feels cold. He has no other complaints. According to home health care nurse was at the bedside family is on their way. The ROS documented in this emergency department record has been reviewed and confirmed by me. Those systems with pertinent positive or negative responses have been documented in the HPI. All other systems are other negative and/or noncontributory. - Related Data Home Medications Medication Instructions Recorded Confirmed Aspirin EC [Ecotrin Low Dose] 81 mg PO DAILY 07/23/22 07/15/23 Carbamide Peroxide [Debrox Otic] 5 drops LEFT EAR BID 07/23/22 07/15/23 levETIRAcetam [Keppra] 500 mg PO Q12HR 07/23/22 07/15/23 lisinopriL [Zestril] 20 mg PO DAILY 07/23/22 07/15/23 Clopidogrel [Plavix] 75 mg PO DAILY 07/15/23 07/15/23 Dapagliflozin Propanediol [Farxiga] 10 mg PO DAILY 07/15/23 07/15/23 Fluticasone Nasal [place] [Flonase 2 spray EA NOSTRIL DAILY 07/15/23 07/15/23 Nasal [place]] Ofloxacin 0.3% Otic Soln [Floxin 10 drops RIGHT EAR DAILY 07/15/23 07/15/23 0.3% Otic Soln] Pantoprazole Sodium [Protonix] 40 mg PO DAILY 07/15/23 07/15/23 Tolterodine ER [Detrol LA] 2 mg PO DAILY 07/15/23 07/15/23 traZODone HCL [Desyrel] 50 mg PO HS 07/15/23 07/15/23 Allergies Allergy/AdvReac Type Severity Reaction Status Date / Time No Known Allergies Allergy Verified 07/15/23 15:18 Review of Systems ROS Statement: Those systems with pertinent positive or pertinent negative responses have been documented in the HPI. ROS Other: All systems not noted in ROS Statement are negative. Past Medical History Past Medical History: CVA/TIA, Diabetes Mellitus, Hyperlipidemia, Hypertension, Memory Impairment Additional Past Medical History / Comment(s): TBI History of Any Multi-Drug Resistant Organisms: None Reported Past Surgical History: Tonsillectomy Additional Past Surgical History / Comment(s): left carotid artery stent Past Psychological History: No Psychological Hx Reported Smoking Status: Former smoker Past Alcohol Use History: None Reported Past Drug Use History: None Reported General Exam - General Exam Comments Initial Comments: PHYSICAL EXAM: General Impression: Alert and oriented x3, not in acute distress HEENT: Normocephalic atraumatic, extra-ocular movements intact, pupils equal and reactive to light bilaterally, mucous membranes moist, poor dentition Cardiovascular: Heart regular rate and rhythm Chest: Able to complete full sentences, no retractions, no tachypnea Abdomen: abdomen soft, non-tender, non-distended, no organomegaly Musculoskeletal: Pulses present and equal in all extremities, no peripheral edema Motor: no focal deficits noted Neurological: CN II-XII grossly intact, no focal motor or sensory deficits noted Skin: Intact with no visualized rashes Psych: Normal affect and mood Limitations: no limitations Course Vital Signs 07/15/23 11:42 Temperature 97.4 F L Pulse Rate 67 Respiratory 18 Rate Blood Pressure 105/43 O2 Sat by Pulse 92 L Oximetry - Reevaluation(s) Reevaluation #1: 07/15/23 12:27 More history obtained from family who is feeling and at [facility] where patient was seen. On July 05 patient was admitted to [facility] for altered mental status. He was admitted. He had 1 set of blood cultures that they were notified was gram-positive on July 11. Patient recently moved t into a skilled nursing. He allegedly fell last night. Ashley spoke with patient's daughter who is power of instructional developer requested patient be transferred to [facility] for further evaluation. Reevaluation #2: 07/15/23 15:47 Fax records from patient's recent hospital admission from [facility] were reviewed. Patient was there on July 07, 2023 was seen in the ER for altered mental status generalized weakness. His labs are unremarkable. Apparently he had normal labs and benign physical examination besides report of alteration in mentation from baseline. He was admitted to Dr. Jean. He was seen by teleneurology. 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 Patient was discharged on July 08, 2023. Complete fax documents were reviewed. There were no microbiology results. Reevaluation #3: 07/15/23 15:56Case discussed with Dr. Jean. He request that patient be admitted. Blood cultures pending. EKG Findings - EKG Comments: EKG Findings:: My EKG interpretation: Ventricular rate 63, sinus rhythm,. 223, cures 170, QTc 466. No KS prolongation, no QTC prolongation, no ST or T-wave changes noted. No EKG for comparison right bundle branch block Medical Decision Making - Medical Decision Making Was pt. sent in by a medical professional or institution (, [facility], TOP STEEP TENDER, urgent care, hospital, or long-term...) When possible be specific @ -No Did you speak to anyone other than the patient for history (EMS, parent, family, police, friend...)? What history was obtained from this source @ -See above Did you review nursing and triage notes (agree or disagree)? Why? @ -I reviewed and agree with nursing and triage notes Were old charts reviewed (outside hosp., previous admission, EMS record, old EKG, old radiological studies, urgent care reports/EKG's, long-term records)? Report findings @ -No old charts were reviewed Differential Diagnosis (chest pain, altered mental status, abdominal pain women, abdominal pain men, vaginal bleeding, musculoskeletal, weakness, fever, dyspnea, syncope, headache, dizziness, GI bleed, back pain, seizure, CVA, palpatations, mental health)? @ -Not applicable EKG interpreted by me (3pts min.). @ -See above X-rays interpreted by me (1pt min.). @ -None done CT interpreted by me (1pt min.). @ -None done U/S interpreted by me (1pt. min.). @ -None done What testing was considered but not performed or refused? (CT, X-rays, U/S, labs)? Why? @ -None What meds were considered but not given or refused? Why? @ -None Did you discuss the management of the patient with other professionals (professionals i.e. , PA, TOP STEEP TENDER, lab, RT, psych nurse, social insurance analyst, child welfare social worker, teacher, president and chief commercial officer, case specialist)? Give summary @ -See above Was smoking cessation discussed for >3mins.? @ -No Was critical care preformed (if so, how long)? @ -No Were there social determinants of health that impacted care today? How? (Homelessness, low income, unemployed, alcoholism, drug addiction, transportation, low edu. Level, literacy, decrease access to med. care, detention, rehab)? @ -No Was there de-escalation of care discussed even if they declined (Discuss DNR or withdrawal of care, Hospice)? DNR status @ -No What co-morbidities impacted this encounter? (DM, HTN, Smoking, COPD, CAD, Cancer, CVA, ARF, Chemo, Hep., AIDS, mental health diagnosis, sleep apnea, morbid obesity)? @ -None Was patient admitted / discharged? Hospital course, mention meds given and route, prescriptions, significant lab abnormalities, going to OR and other pertinent info. @ -78-year-old male will be admitted. He apparently had some positive blood culture from recent hospital admission. Vital signs upon arrival are within acceptable limits. Physical examination is benign. Patient nondistressed. Laboratory evaluation obtained found to be within acceptable limits. No paulina kocytosis. CRP is negative. Pro-Phan and ESR are pending. Case discussed with patient's primary care doctor requested that patient be admitted pending blood cultures. Undiagnosed new problem with uncertain prognosis? @ -No Drug Therapy requiring intensive monitoring for toxicity (Heparin, Nitro, Insulin, Cardizem)? @ -No Were any procedures done? @ -No Diagnosis/symptom? Acute, or Chronic, or Acute on Chronic? Uncomplicated (without systemic symptoms) or Complicated (systemic symptoms)? @ -Abnormal blood culture result Side effects of treatment? @ -No Exacerbation, Progression, or Severe Exacerbation? @ -No Poses a threat to life or bodily function? How? (Chest pain, [place], [place], pneumonia, PE, COPD, DKA, ARF, appy, cholecystitis, CVA, Diverticulitis, Homicidal, Suicidal, threat to staff... and all critical care pts) @ - - Lab Data Result diagrams: 07/15/23 12:54 07/15/23 12:54 Lab Results 07/15/23 07/15/23 07/15/23 Range/Units 12:54 12:54 12:54 WBC 10.6 (3.8-10.6) k/uL RBC 4.59 (4.30-5.90) m/uL Hgb 14.8 (13.0-17.5) gm/dL Hct 46.7 (39.0-53.0) % MCV 101.8 H (80.0-100.0) fL MCH 32.2 (25.0-35.0) pg MCHC 31.7 (31.0-37.0) g/dL RDW 12.6 (11.5-15.5) % Plt Count 198 (150-450) k/uL MPV 8.4 Neutrophils % 83 % Lymphocytes % 9 % Monocytes % 5 % Eosinophils % 2 % Basophils % 0 % Neutrophils # 8.8 H (1.3-7.7) k/uL Lymphocytes # 0.9 L (1.0-4.8) k/uL Monocytes # 0.5 (0-1.0) k/uL Eosinophils # 0.2 (0-0.7) k/uL Basophils # 0.0 (0-0.2) k/uL PT 10.7 (10.0-12.5) sec INR 1.0 (<1.2) APTT 24.8 (22.0-30.0) sec Sodium 136 L (137-145) mmol/L Potassium 4.4 (3.5-5.1) mmol/L Chloride 104 (98-107) mmol/L Carbon Dioxide 22 (22-30) mmol/L Anion Gap 10 mmol/L BUN 28 H (9-20) mg/dL Creatinine 0.83 (0.66-1.25) mg/dL Est GFR (CKD-EPI)AfAm >90 (>60 ml/min/1.73 sqM) Est GFR (CKD-EPI)NonAf 83 (>60 ml/min/1.73 sqM) Glucose 236 H (74-99) mg/dL Plasma Lactic Acid Luc (0.7-2.0) mmol/L Calcium 10.4 H (8.4-10.2) mg/dL Magnesium 2.0 (1.6-2.3) mg/dL Total Bilirubin 0.5 (0.2-1.3) mg/dL AST 19 (17-59) U/L ALT 14 (4-49) U/L Alkaline Phosphatase 71 (38-126) U/L C-Reactive Protein 3.3 H (<1.0) mg/dL Total Protein 7.0 (6.3-8.2) g/dL Albumin 4.3 (3.5-5.0) g/dL 07/15/23 Range/Units 12:54 WBC (3.8-10.6) k/uL RBC (4.30-5.90) m/uL Hgb (13.0-17.5) gm/dL Hct (39.0-53.0) % MCV (80.0-100.0) fL MCH (25.0-35.0) pg MCHC (31.0-37.0) g/dL RDW (11.5-15.5) % Plt Count (150-450) k/uL MPV Neutrophils % % Lymphocytes % % Monocytes % % Eosinophils % % Basophils % % Neutrophils # (1.3-7.7) k/uL Lymphocytes # (1.0-4.8) k/uL Monocytes # (0-1.0) k/uL Eosinophils # (0-0.7) k/uL Basophils # (0-0.2) k/uL PT (10.0-12.5) sec INR (<1.2) APTT (22.0-30.0) sec Sodium (137-145) mmol/L Potassium (3.5-5.1) mmol/L Chloride (98-107) mmol/L Carbon Dioxide (22-30) mmol/L Anion Gap mmol/L BUN (9-20) mg/dL Creatinine (0.66-1.25) mg/dL Est GFR (CKD-EPI)AfAm (>60 ml/min/1.73 sqM) Est GFR (CKD-EPI)NonAf (>60 ml/min/1.73 sqM) Glucose (74-99) mg/dL Plasma Lactic Acid Luc 1.4 (0.7-2.0) mmol/L Calcium (8.4-10.2) mg/dL Magnesium (1.6-2.3) mg/dL Total Bilirubin (0.2-1.3) mg/dL AST (17-59) U/L ALT (4-49) U/L Alkaline Phosphatase (38-126) U/L C-Reactive Protein (<1.0) mg/dL Total Protein (6.3-8.2) g/dL Albumin (3.5-5.0) g/dL Disposition Clinical Impression: Positive blood culture Disposition: ADMITTED IP TO THIS [facility] Condition: Fair Referrals: Cristobal Brunner MD [REFERRING] - 1-2 days Decision Time: 15:58
[2023-07-15 13:33] LABS: Basophils % (A) 0 %; Eosinophils # (A) 0.2 k/uL (0-0.7); Eosinophils % (A) 2 %; HCT 46.7 % (39.0-53.0); HGB 14.8 gm/dL (13.0-17.5); Lymphocytes # (A) 0.9 k/uL (1.0-4.8); Lymphocytes % (A) 9 %; MCH 32.2 pg (25.0-35.0); MCHC 31.7 g/dL (31.0-37.0); MCV 101.8 fL (80.0-100.0); Mean Platelet Volume 8.4; Monocytes # (A) 0.5 k/uL (0-1.0); Monocytes % (A) 5 %; Neutrophils # (A) 8.8 k/uL (1.3-7.7); Neutrophils % (A) 83 %; Platelet Count 198 k/uL (150-450); RBC 4.59 m/uL (4.30-5.90); RDW 12.6 % (11.5-15.5); WBC 10.6 k/uL (3.8-10.6)
[2023-07-15 13:43] LABS: Partial Thromboplastin Time 24.8 sec (22.0-30.0); Prothrombin Time 10.7 sec (10.0-12.5)
[2023-07-15 14:05] LABS: ALT 14 U/L (4-49); AST 19 U/L (17-59); African American GFR (CKD) >90 (>60 ml/min/1.73 sqM); Albumin 4.3 g/dL (3.5-5.0); Alkaline Phosphatase 71 U/L (38-126); Anion Gap 10 mmol/L; Blood Urea Nitrogen 28 mg/dL (9-20); C Reactive Protein 3.3 mg/dL (<1.0); Calcium 10.4 mg/dL (8.4-10.2); Carbon Dioxide 22 mmol/L (22-30); Chloride 104 mmol/L (98-107); Glucose 236 mg/dL (74-99); Non-African American GFR(CKD) 83 (>60 ml/min/1.73 sqM); Potassium 4.4 mmol/L (3.5-5.1); Sodium 136 mmol/L (137-145); Total Bilirubin 0.5 mg/dL (0.2-1.3)
[2023-07-15] MEDS ORDERED: NALOXONE 0.4 MG/ML 1 ML VIAL IV PRN (15:54)
[2023-07-15] MEDS: SODIUM CHLORIDE 0.9% 1,000 ML IV SCH (19:00)
[2023-07-15 19:38] LABS: Erythrocyte Sedimentation Rate 24 mm/Hr (0-20)
[2023-07-16 06:01] LABS: Appearance,Urine Clear (Clear); Bilirubin,Urine Negative (Negative); Blood,Urine Negative (Negative); Color,Urine Colorless; Glucose,Urine (UA) 4+ (Negative); Ketones,Urine Negative (Negative); Leukocyte Esterase,Urine Negative (Negative); Nitrite,Urine Negative (Negative); Protein,Urine Negative (Negative); Specific Gravity,Urine 1.027 (1.001-1.035); Urobilinogen,Urine <2.0 mg/dL (<2.0)
[2023-07-16] MEDS: DAPAGLIFLOZIN PROPANEDIOL 10 MG TABLET PO SCH (09:24)
[2023-07-16] MEDS: CLOPIDOGREL 75 MG TAB PO SCH (09:24)
[2023-07-16] MEDS: lisinopriL 20 MG TAB PO SCH (09:24)
[2023-07-16] MEDS: PANTOPRAZOLE 40 MG TABLET PO SCH (09:24)
[2023-07-16] MEDS: levETIRAcetam 500 MG TAB PO SCH (09:24)
[2023-07-16] MEDS: CARBAMIDE PEROXIDE 6.5% DROPS 15 ML BTL LEFT EAR SCH (09:26)
[2023-07-16] MEDS: FLUTICASONE 50MCG/SPRAY NASAL 16GM EA NOSTRIL SCH (09:26)
[2023-07-16 11:47] LABS: Glucose,Whole Blood 268 mg/dL (70-110)
--- NOTE | 2023-07-16 15:46 | CT ---
EXAMINATION TYPE: CT chest wo con CT DLP: 354.5 mGycm, Automated exposure control for dose reduction was used. DATE OF EXAM: 07/16/2023 3:37 PM COMPARISON: None CLINICAL INDICATION:Male, 78 years old with history of aspiration; PHH, Aspiration TECHNIQUE: Multiple axial images were obtained through the chest. Sagittal and coronal reformats were created for review. Contrast used: mL of (None if empty) Oral contrast used: (None if empty) FINDINGS: LUNGS/ PLEURA: Right lower lung airspace opacities suggested there is some motion artifact, low lung volumes are which makes it possible this is atelectasis changes.. No pneumothorax or pleural effusion . AIRWAY: Patent and unremarkable. HEART: Size within normal limits. MEDIASTINUM: No gross evidence of adenopathy. VASCULATURE: Atherosclerotic calcifications are present throughout the aorta and its branches. MUSCULOSKELETAL: Severe disc degeneration changes are present throughout the thoracolumbar spine., ri ght shoulder joint body with calcification the subacromial space. There is severe degeneration change s of the shoulders. SOFT TISSUES/LYMPH NODES: Unremarkable. LOWER NECK: No significant findings. UPPER ABDOMEN: No significant findings. IMPRESSION: 1. Right lower lung subtle airspace opacities possibly representing atelectasis. Correlate clinicall y attention on follow-up chest radiographs. 2. Severe shoulder osteoarthrosis. Right shoulder joint effusion with calcified body in the subacrom ial space.
[2023-07-16] MEDS: IPRATROPIUM-ALBUTEROL 3 ML NEB INHALATION SCH (15:50)
[2023-07-16 16:09] LABS: Glucose,Whole Blood 338 mg/dL (70-110)
[2023-07-16] MEDS: amLODIPine 2.5 MG TAB PO SCH (16:12)
[2023-07-16] MEDS: AMPICILLIN-SULBACTAM 1.5 GM in SODIUM CHLORIDE 0.9% 50 ML IVPB SCH (16:12)
[2023-07-16] MEDS: ASPIRIN 81 MG PO SCH (16:12)
[2023-07-16] MEDS: SODIUM CHLORIDE 0.9% 1,000 ML IV SCH (16:14)
[2023-07-16] MEDS ORDERED: DEXTROSE 50% SYRINGE 50 ML IVP PRN ×2 (17:48)
[2023-07-16] MEDS ORDERED: VANCOMYCIN IV PER PHARMACY 1 EACH MISC MISCELLANE PRN (18:56)
[2023-07-16] MEDS ORDERED: MELATONIN 3 MG TABLET PO PRN (19:10)
[2023-07-16] MEDS ORDERED: bisacodyL 5 MG TABLET.DR PO PRN (19:10)
[2023-07-16] MEDS ORDERED: ONDANSETRON 4 MG/2 ML VIAL IVP PRN (19:10)
[2023-07-16] MEDS ORDERED: ACETAMINOPHEN TAB 325 MG TAB PO PRN (19:10)
--- NOTE | 2023-07-16 19:19 | P.HPIM ---
History of Present Illness H&P Date: 07/16/23 Chief Complaint: bacteremia Notified of this patient from [facility]ctor on 07/16/23 at 1350 and patient subsequently transferred to our service. Patient is a 78-year-old male patient of the [facility] with history of GERD, CVA with left-sided hemiplegia, diabetes mellitus type 2 with insulin use, chronic kidney disease, osteoarthritis, right carotid artery occlusion, per ipheral vascular disease, posttraumatic stress disorder, and traumatic brain injury who presented to the emergency department at the direction of his primary care team due to blood cultures positive for gram-positive cocci. Of note patient was recently hospitalized and really released from [facility] due to altered mentation. During that hospital stay he underwent a CT head which showed an old right MCA CVA. CTA head and neck which showed a right internal carotid artery occlusion which was felt to be chronic, and an echocardiogram which showed an ejection fraction of 55% with no signs of significant valvular disease. During that hospital stay he saw neurology who felt that his confusion was due to worsening of dementia. Patient was then newly placed on Aricept, Seroquel 12.5 mg, and trazodone 50 mg. He was seen at the [facility] and was found to be much altered from baseline as well as disheveled and therefore was directed to the ER. On arrival to the ER vital s igns within normal limits. Initial laboratory analysis included CBC, coags, CMP which were remarkable for sodium 136, BUN 28, glucose 236, and calcium of 10.4. Urinalysis was negative. Patient was admitted and was placed on ampicillin. Patient seen and examined at bedside. No family present at bedside. He is very confused. He is able to tell me that he is here for falling. He denies any pa in anywhere, chest pain, shortness of breath, nausea, vomiting, difficulty with stools. He says he has chronic difficulty with urination. All information is gained from thorough record review including notes from prior hospital stay at [facility] and discussion with his primary care nurse practitioner. Vital signs reviewed General: Nontoxic, no distress, appears at stated age Cardiovascular: S1S2 reg, no murmur Lungs: CTA bilateral, no rhonchi, no rales, no accessory muscle use Abdominal: Soft, nontender to palpation, no guarding Ext: No gross muscle atrophy, no edema b/l lower extremities, no contractures Neuro: CN II-XI grossly intact, no focal neuro deficits Psych: Alert, oriented to self and place, appropriate affect Assessment/Plan: Acute encephalopathy on known dementia Gram positive bacteremia - Vanco IVPB monitor trough and cr for toxicity , unasyn 3 g IVPB q 8 h - Await our blood culture - check ABD x-ray - CT chest without PNA, UA negative - Await ID recs - Hold trazodone and seroquel - records reviewed and TSH, B 12 normal Hx of CVA with residual right sided deficits HTN -Aspirin 81 mg daily, Plavix 75 mg daily -Lisinopril 20 mg daily -Keppra 500 mg every 12 hours Diabetes mellitus type 2 -Sliding scale insulin -Follow blood sugars -Farxiga 10 mg daily GERD Chronic kidney disease Peripheral arterial disease Imaging: CT of the chest: Right lower lobe subtle airspace opacities possible atelec tasis, severe shoulder arthritis right shoulder joint effusion with calcified body in the subacromial space Data Review: per HPI DVT prophylaxis: Heparin Anticipated discharge date: Pending Clinical Course Anticipated discharge place: Pending Clinical Course This dictation was prepared using [employer] voice recognition software. Though every attempt is made to correct errors during dictation some may still exist. Past Medical History Past Medical History: CVA/TIA, Diabetes Mellitus, Hyperlipidemia, Hypertension, Memory Impairment Additional Past Medical History / Comment(s): TBI History of Any Multi-Drug Resistant Organisms: None Reported Past Surgical History: Tonsillectomy Additional Past Surgical History / Comment(s): left carotid artery stent Past Anesthesia/Blood Transfusion Reactions: Unable to Obtain Past Psychological History: No Psychological Hx Reported Smoking Status: Former smoker Past Alcohol Use History: None Reported Past Drug Use History: None Reported Medications and Allergies Home Medications Medication Instructions Recorded Confirmed Type Aspirin EC [Ecotrin Low Dose] 81 mg PO DAILY 07/23/22 07/15/23 History Carbamide Peroxide [Debrox Otic] 5 drops LEFT EAR BID 07/23/22 07/15/23 History levETIRAcetam [Keppra] 500 mg PO Q12HR 07/23/22 07/15/23 History lisinopriL [Zestril] 20 mg PO DAILY 07/23/22 07/15/23 History Clopidogrel [Plavix] 75 mg PO DAILY 07/15/23 07/15/23 History Dapagliflozin Propanediol [Farxiga] 10 mg PO DAILY 07/15/23 07/15/23 History Fluticasone Nasal [place] [Flonase 2 spray EA NOSTRIL DAILY 07/15/23 07/15/23 History Nasal [place]] Ofloxacin 0.3% Otic Soln [Floxin 10 drops RIGHT EAR DAILY 07/15/23 07/15/23 History 0.3% Otic Soln] Pantoprazole Sodium [Protonix] 40 mg PO DAILY 07/15/23 07/15/23 History Tolterodine ER [Detrol LA] 2 mg PO DAILY 07/15/23 07/15/23 History traZODone HCL [Desyrel] 50 mg PO HS 07/15/23 07/15/23 History Allergies Allergy/AdvReac Type Severity Reaction Status Date / Time No Known Allergies Allergy Verified 07/15/23 15:18 Physical Exam Osteopathic Statement: *. No significant issues noted on an osteopathic structural exam other than those noted in the History and Physical/Consult. Vitals: Vital Signs Temp Pulse Pulse Resp BP Pulse Ox 07/16/23 15:59 62 07/16/23 15:50 56 L 07/16/23 14:00 97.3 F L 58 L 18 149/71 95 07/16/23 08:00 97.4 F L 64 18 161/78 96 07/16/23 01:26 96.7 F L 61 13 154/62 98 07/15/23 20:05 98.3 F 69 17 166/73 100 Intake and Output 07/16/23 07/16/23 07/16/23 06:59 14:59 22:59 Other: Voiding Method Diaper Incontinent # Voids 1 4 # Bowel Movements 3 Weight 96.162 kg Results CBC & Chem 7: 07/15/23 12:54 07/15/23 12:54 Labs: Abnormal Lab Results - Last 24 Hours (Table) 07/15/23 07/16/23 07/16/23 Range/Units 12:54 05:42 11:41 ESR 24 H (0-20) mm/Hr POC Glucose (mg/dL) 268 H (70-110) mg/dL Urine Glucose (UA) 4+ H (Negative) 07/16/23 Range/Units 16:07 ESR (0-20) mm/Hr POC Glucose (mg/dL) 338 H (70-110) mg/dL Urine Glucose (UA) (Negative) Thrombosis Risk Factor Assmnt - Choose All That Apply Any of the Below Risk Factors Present?: Yes Each Factor Represents 1 point: Obesity (BMI >25) Other Risk Factors: No Other congenital or acquired thrombophilia - If yes, enter type in comment: No Thrombosis Risk Factor Assessment Total Risk Factor Score: 1 Thrombosis Risk Factor Assessment Level: Low Risk
[2023-07-16 20:07] LABS: Glucose,Whole Blood 314 mg/dL (70-110)
[2023-07-16] MEDS: INSULIN ASPART (NovoLOG) 100 UNIT/ML VIAL SQ SCH (20:11)
[2023-07-16] MEDS: VANCOMYCIN 1,500 MG in SODIUM CHLORIDE 0.9% 500 ML 500 ML IVPB SCH (20:11)
[2023-07-16] MEDS ORDERED: traZODone HCL 50 MG TAB PO SCH (21:00)
[2023-07-16] MEDS: HEPARIN SODIUM,PORCINE 5,000 UNIT/ML 1 ML VIAL SQ SCH (23:48)
[2023-07-16] MEDS: AMPICILLIN-SULBACTAM 3 GM in SODIUM CHLORIDE 0.9% 100 ML IVPB SCH (23:48)
--- NOTE | 2023-07-17 00:11 | HP ---
HISTORY AND PHYSICAL HISTORY OF PRESENT ILLNESS: This is an 78-year-old male with severe dementia. He came to the hospital with altered mental status. He has a history of diabetes mellitus and dementia. He had a positive blood culture after being sent home from [facility] few days ago. I found the positive blood culture, readmitted him here because of positive blood culture, which had been repeated, started on prophylactic antibiotics. He may have had aspiration pneumonia. HOME MEDICINES: 1. Debrox for ears. 2. Ecotrin 81 daily. 3. Keppra 500 b.i.d. 4. Zestril 20 daily. 5. Plavix 75 daily. 6. Farxiga 10 daily. 7. Flonase nasal spray daily. 8. Floxin ear drops. 9. Protonix 40 daily. 10.Detrol LA 2 mg daily. 11.Desyrel 50 q.h.s. ALLERGIES: Negative. PAST MEDICAL HISTORY: He has a history of carotid stenosis, dementia, CVA, TIA, diabetes mellitus, hypertension, and dyslipidemia. SURGICAL HISTORY: Tonsillectomy, left carotid stents. SOCIAL HISTORY: He is a former smoker for many years. PHYSICAL EXAMINATION: VITAL SIGNS: Temperature 97.4, pulse 50s to 67, respiratory rate 16 to 18, blood pressure 105/43, O2 90 low on admission. Possibly had aspiration pneumonia. GENERAL: He is not alert and oriented. He is confused. HEENT: Head normocephalic, atraumatic. CARDIOVASCULAR: S1, S2. LUNGS: Decreased breath sounds. NEUROLOGIC: Unable to complete full sentences. No focal deficits. Cranial nerves are intact. ABDOMEN: Soft. MUSCULOSKELETAL: Range of motion x4. SKIN: Warm and dry. PSYCH: Altered. The patient admitted for positive blood culture, bacteremia. Repeat blood cultures, possible aspiration pneumonia, dementia, history of COPD, and carotid stenosis. EKG, ventricular rate, no ST-T changes. Start him on antibiotics. Get infectious disease consult, repeat blood cultures. Treat with current home medications. Monitor his nutrition. Gave him some fluids, he was dehydrated. Prognosis guarded. MMODL / IJN: [id number] /
[2023-07-17 05:59] LABS: Glucose,Whole Blood 136 mg/dL (70-110)
[2023-07-17 07:12] LABS: HCT 42.6 % (39.0-53.0); HGB 13.1 gm/dL (13.0-17.5); MCH 31.1 pg (25.0-35.0); MCHC 30.7 g/dL (31.0-37.0); MCV 101.4 fL (80.0-100.0); Mean Platelet Volume 8.4; Platelet Count 208 k/uL (150-450); RDW 12.7 % (11.5-15.5); WBC 7.8 k/uL (3.8-10.6)
[2023-07-17 07:26] LABS: ALT 161 U/L (4-49); AST 189 U/L (17-59); African American GFR (CKD) 67 (>60 ml/min/1.73 sqM); Albumin 2.9 g/dL (3.5-5.0); Albumin/Globulin Ratio 1.1; Alkaline Phosphatase 36 U/L (38-126); Anion Gap 3 mmol/L; Blood Urea Nitrogen 12 mg/dL (9-20); C Reactive Protein <0.5 mg/dL (<1.0); Carbon Dioxide 24 mmol/L (22-30); Chloride 109 mmol/L (98-107); Globulin 2.7 g/dL; Glucose 101 mg/dL (74-99); Magnesium 1.9 mg/dL (1.6-2.3); Non-African American GFR(CKD) 58 (>60 ml/min/1.73 sqM); Potassium 4.5 mmol/L (3.5-5.1); Sodium 136 mmol/L (137-145); Total Bilirubin 0.4 mg/dL (0.2-1.3); Total Protein 5.6 g/dL (6.3-8.2)
[2023-07-17 07:30] LABS: African American GFR (CKD) >90 (>60 ml/min/1.73 sqM); Non-African American GFR(CKD) >90 (>60 ml/min/1.73 sqM)
--- NOTE | 2023-07-17 08:17 | XR ---
EXAMINATION TYPE: XR abdomen 2V DATE OF EXAM: 07/16/2023 CLINICAL DATA: 78-year-old male abdominal fullness, PHH COMPARISON: None FINDINGS: Lung bases are clear. No evidence for free intraperitoneal air. Some scattered gas in colon. Mild scattered stool. No dilated small bowel loops or air-fluid levels are seen. Air extends distally to the rectum. IMPRESSION: Scattered gassy colon. No evidence for free air or bowel obstruction. Mild stool burden.
[2023-07-17 11:55] LABS: Glucose,Whole Blood 232 mg/dL (70-110)
[2023-07-17 12:35] LABS: Chol/HDL Ratio 4.03 Ratio; LDL Cholesterol,Calculated 106.4 mg/dL (0.0-131.0)
--- NOTE | 2023-07-17 14:48 | P.PN ---
Subjective Progress Note Date: 07/17/23 Patient is a 78-year-old male patient of the [facility] with history of GERD, CVA with left-sided hemiplegia, diabetes mellitus type 2 with insulin use, chronic kidney disease, osteoarthritis, right carotid artery occlusion, peripheral vascular disease, posttraumatic stress disorder, and traumatic brain injury who presented to the emergency department at the direction of his primary care team due to blood cultures positive for gram-positive cocci. Of note patient was recently hospitalized and really released from [facility] due to altered mentation. During that hospital stay he underwent a CT head which showed an old right MCA CVA. CTA head and neck which showed a right internal carotid artery occlusion which was felt to be chronic, and an echocardiogram which showed an ejection fraction of 55% with no signs of significant valvular disease. During that hospital stay he saw neurology who felt that his confusion was due to worsening of dementia. Patient was then newly placed on Aricept, Seroquel 12.5 mg, and trazodone 50 mg. He was seen at the [facility] and was found to be much altered from baseline as well as disheveled and therefore was directed to the ER. On arrival to the ER vital signs within normal limits. Initial laboratory analysis included CBC, coags, CMP which were remarkable for sodium 136, BUN 28, glucose 236, and calcium of 10.4. Urinalysis was negative. Patient was admitted and was placed on ampicillin/sulbactam and vanco. ID was consulted. He underwent CT of the chest which showed right lower lobe atelectasis. His procalcitonin came back negative. A1c slightly elevated at 8.5. Patient seen and examined at bedside. He continues to be pleasantly confused. He denies any chest pain, shortness of breath, nausea, vomiting. Vital signs reviewed General: Nontoxic, no distress, appears at stated age Cardiovascular: S1S2 reg, with grade II murmur Lungs: CTA bilateral, no rhonchi, no rales, no accessory muscle use Abdominal: Soft, nontender to palpation, no guarding Ext: No gross muscle atrophy, no edema b/l lower extremities, no contractures Neuro: CN II-XI grossly intact, no focal neuro deficits Psych: Alert, oriented to self, appropriate affect Assessment/Plan: Acute encephalopathy on known dementia Probable gram positive bacteremia on outpatient cultures - current cultures are negative to date Right shoulder effusion. - Vanco IVPB D#2 monitor trough and cr for toxicity , unasyn 3 g IVPB q 8 h D# 2 - await ID recs - CT chest without PNA, UA negative - Hold trazodone and seroquel - records reviewed and TSH, B 12 normal - Procal is negative, doubt infection - likely return to senior care when blood culture is negative for 48 hours Hx of CVA with residual right sided deficits HTN -Aspirin 81 mg daily, Plavix 75 mg daily -Lisinopril 20 mg daily -Keppra 500 mg every 12 hours Tranaminitis - mild without elevated bilirubin - will check liver US - Repeat LFTs in AM Diabetes mellitus type 2 with hyperglycemia -Sliding scale insulin -Follow blood sugars -Farxiga 10 mg daily - A1C 8.5 GERD Chronic kidney disease Peripheral arterial disease Imaging: Abdominal x-ray: Scattered gassy: Mild stool burden. Data Review: Labs reviewed from today include CBC, CMP, CRP, A1c, procalcitonin, and cholesterol profiles. These are remarkable for sodium 136, sugar 232, hemoglobin A1c 8.5, AST 189, ALT 161. DVT prophylaxis: Heparin Anticipated discharge date: Pending Clinical Course Anticipated discharge place: Pending Clinical Course This dictation was prepared using [employer] voice recognition software. Though every attempt is made to correct errors during dictation some may still exist. Objective - Vital Signs Vital signs: Vital Signs Temp 98.2 F 07/17/23 07:34 Pulse 65 07/17/23 11:50 Resp 18 07/17/23 07:34 BP 162/73 07/17/23 07:34 Pulse Ox 97 07/17/23 07:34 FiO2 Intake & Output 07/16/23 07/17/23 07/17/23 18:59 06:59 18:59 Output Total 200 Balance -200 Output: Urine 200 Other: Voiding Method Diaper Toilet Toilet Incontinent Diaper Diaper Incontinent Incontinent # Voids 4 3 - Labs CBC & Chem 7: 07/17/23 06:31 07/17/23 06:31 Labs: Abnormal Lab Results - Last 24 Hours (Table) 07/16/23 07/16/23 07/17/23 Range/Units 16:07 20:05 05:58 RBC (4.30-5.90) m/uL MCV (80.0-100.0) fL MCHC (31.0-37.0) g/dL Sodium (137-145) mmol/L Chloride (98-107) mmol/L Creatinine (0.66-1.25) mg/dL Glucose (74-99) mg/dL POC Glucose (mg/dL) 338 H 314 H 136 H (70-110) mg/dL Hemoglobin A1c (<=6.0) % Calcium (8.4-10.2) mg/dL AST (17-59) U/L ALT (4-49) U/L Alkaline Phosphatase (38-126) U/L Total Protein (6.3-8.2) g/dL Albumin (3.5-5.0) g/dL 07/17/23 07/17/23 07/17/23 Range/Units 06:31 06:31 06:31 RBC 4.20 L (4.30-5.90) m/uL MCV 101.4 H (80.0-100.0) fL MCHC 30.7 L (31.0-37.0) g/dL Sodium (137-145) mmol/L Chloride (98-107) mmol/L Creatinine 0.61 L (0.66-1.25) mg/dL Glucose (74-99) mg/dL POC Glucose (mg/dL) (70-110) mg/dL Hemoglobin A1c 8.5 H (<=6.0) % Calcium (8.4-10.2) mg/dL AST (17-59) U/L ALT (4-49) U/L Alkaline Phosphatase (38-126) U/L Total Protein (6.3-8.2) g/dL Albumin (3.5-5.0) g/dL 07/17/23 07/17/23 Range/Units 06:31 11:53 RBC (4.30-5.90) m/uL MCV (80.0-100.0) fL MCHC (31.0-37.0) g/dL Sodium 136 L (137-145) mmol/L Chloride 109 H (98-107) mmol/L Creatinine (0.66-1.25) mg/dL Glucose 101 H (74-99) mg/dL POC Glucose (mg/dL) 232 H (70-110) mg/dL Hemoglobin A1c (<=6.0) % Calcium 8.0 L (8.4-10.2) mg/dL AST 189 H (17-59) U/L ALT 161 H (4-49) U/L Alkaline Phosphatase 36 L (38-126) U/L Total Protein 5.6 L (6.3-8.2) g/dL Albumin 2.9 L (3.5-5.0) g/dL Microbiology - Last 24 Hours (Table) 07/15/23 19:36 Blood Culture - Preliminary Blood 07/15/23 12:54 Blood Culture - Preliminary Blood
[2023-07-17 16:57] LABS: Glucose,Whole Blood 193 mg/dL (70-110)
[2023-07-17 21:42] LABS: Glucose,Whole Blood 175 mg/dL (70-110)
[2023-07-17] MEDS: VANCOMYCIN 1,500 MG in SODIUM CHLORIDE 0.9% 500 ML 500 ML IVPB SCH (22:04)
--- NOTE | 2023-07-17 22:19 | P.CONS ---
History of Present Illness - Reason for Consult Consult date: 07/17/23 - History of Present Illness Patient is a 78-year-old male with a past medical history negative for diabetes mellitus hypertension hyperlipidemia memory impairment CVA TIA apparently he recently admitted to [facility] for unknown reason and subsequent discharge where the patient did have blood cultures drawn which came back positive and the patient was advised to go back to the hospital patient ended up coming to the [facility] along with his home care nurse who did not provided any information to the ER physician on arrival patient was complaining of feeling cold however no fever have been recorded on admission and subsequently patient was not tachycardic hypotensive or hypoxic patient did have a white count of 10.8 creatinine is normal liver isms mildly elevated CRP less than 0.5 procalcitonin 0.03 urine has been negative blood culture has been drawn here which are currently pending patient did have a CT of the chest right lower lung airspace opacity possibly representing atelectasis patient also have abdominal x-ray No evidence for free air or bowel obstruction , patient has been started on vancomycin and [place] infectious disease was consulted for further management patient at time my evaluation is not very clear why he has been in the hospital denies any headache or URI symptoms no chest pain shortness of breath or cough no nausea vomiting no abdominal pain no diarrhea Past Medical History Past Medical History: CVA/TIA, Diabetes Mellitus, Hyperlipidemia, Hypertension, Memory Impairment Additional Past Medical History / Comment(s): TBI History of Any Multi-Drug Resistant Organisms: None Reported Past Surgical History: Tonsillectomy Additional Past Surgical History / Comment(s): left carotid artery stent Past Anesthesia/Blood Transfusion Reactions: Unable to Obtain Past Psychological History: No Psychological Hx Reported Smoking Status: Former smoker Past Alcohol Use History: None Reported Past Drug Use History: None Reported Medications and Allergies Home Medications Medication Instructions Recorded Confirmed Type Aspirin EC [Ecotrin Low Dose] 81 mg PO DAILY 07/23/22 07/15/23 History Carbamide Peroxide [Debrox Otic] 5 drops LEFT EAR BID 07/23/22 07/15/23 History levETIRAcetam [Keppra] 500 mg PO Q12HR 07/23/22 07/15/23 History lisinopriL [Zestril] 20 mg PO DAILY 07/23/22 07/15/23 History Clopidogrel [Plavix] 75 mg PO DAILY 07/15/23 07/15/23 History Dapagliflozin Propanediol [Farxiga] 10 mg PO DAILY 07/15/23 07/15/23 History Fluticasone Nasal [place] [Flonase 2 spray EA NOSTRIL DAILY 07/15/23 07/15/23 History Nasal [place]] Ofloxacin 0.3% Otic Soln [Floxin 10 drops RIGHT EAR DAILY 07/15/23 07/15/23 Hi story 0.3% Otic Soln] Pantoprazole Sodium [Protonix] 40 mg PO DAILY 07/15/23 07/15/23 History Tolterodine ER [Detrol LA] 2 mg PO DAILY 07/15/23 07/15/23 History traZODone HCL [Desyrel] 50 mg PO HS 07/15/23 07/15/23 History Allergies Allergy/AdvReac Type Severity Reaction Status Date / Time No Known Allergies Allergy Verified 07/15/23 15:18 Physical Exam Vitals: Vital Signs Temp Pulse Pulse Resp BP Pulse Ox 07/17/23 11:29 64 07/17/23 07:44 63 07/17/23 07:34 98.2 F 62 55 L 18 162/73 97 07/17/23 02:00 97.7 F 67 22 166/69 96 07/16/23 20:16 67 07/16/23 20:06 60 07/16/23 20:00 98.2 F 65 20 166/71 96 07/16/23 15:59 62 07/16/23 15:50 56 L 07/16/23 14:00 97.3 F L 58 L 18 149/71 95 Intake and Output 07/16/23 07/17/23 07/17/23 22:59 06:59 14:59 Output Total 200 Balance -200 Output: Urine 200 Other: Voiding Method Toilet Toilet Diaper Diaper Incontinent Incontinent # Voids 1 3 Results CBC & Chem 7: 07/17/23 06:31 07/17/23 06:31 Labs: Abnormal Lab Results - Last 24 Hours (Table) 07/16/23 07/16/23 07/16/23 Range/Units 11:41 16:07 20:05 RBC (4.30-5.90) m/uL MCV (80.0-100.0) fL MCHC (31.0-37.0) g/dL Sodium (137-145) mmol/L Chloride (98-107) mmol/L Creatinine (0.66-1.25) mg/dL Glucose (74-99) mg/dL POC Glucose (mg/dL) 268 H 338 H 314 H (70-110) mg/dL Hemoglobin A1c (<=6.0) % Calcium (8.4-10.2) mg/dL AST (17-59) U/L ALT (4-49) U/L Alkaline Phosphatase (38-126) U/L Total Protein (6.3-8.2) g/dL Albumin (3.5-5.0) g/dL 07/17/23 07/17/23 07/17/23 Range/Units 05:58 06:31 06:31 RBC (4.30-5.90) m/uL MCV (80.0-100.0) fL MCHC (31.0-37.0) g/dL Sodium (137-145) mmol/L Chloride (98-107) mmol/L Creatinine 0.61 L (0.66-1.25) mg/dL Glucose (74-99) mg/dL POC Glucose (mg/dL) 136 H (70-110) mg/dL Hemoglobin A1c 8.5 H (<=6.0) % Calcium (8.4-10.2) mg/dL AST (17-59) U/L ALT (4-49) U/L Alkaline Phosphatase (38-126) U/L Total Protein (6.3-8.2) g/dL Albumin (3.5-5.0) g/dL 07/17/23 07/17/23 Range/Units 06:31 06:31 RBC 4.20 L (4.30-5.90) m/uL MCV 101.4 H (80.0-100.0) fL MCHC 30.7 L (31.0-37.0) g/dL Sodium 136 L (137-145) mmol/L Chloride 109 H (98-107) mmol/L Creatinine (0.66-1.25) mg/dL Glucose 101 H (74-99) mg/dL POC Glucose (mg/dL) (70-110) mg/dL Hemoglobin A1c (<=6.0) % Calcium 8.0 L (8.4-10.2) mg/dL AST 189 H (17-59) U/L ALT 161 H (4-49) U/L Alkaline Phosphatase 36 L (38-126) U/L Total Protein 5.6 L (6.3-8.2) g/dL Albumin 2.9 L (3.5-5.0) g/dL Microbiology - Last 24 Hours (Table) 07/15/23 19:36 Blood Culture - Preliminary Blood 07/15/23 12:54 Blood Culture - Preliminary Blood Assessment and Plan Plan: 1patient with a positive blood culture in the outpatient facility questionably contamination as the patient clinically do not have any clinical disease to go along with that the patient has been afebrile with a normal white count with a normal CRP and a procalcitonin 2-we will try to obtain results from the outside facility about the nature of these positive blood culture 3-May continue Unasyn however discontinue vancomycin decrease risk of nephrotoxicity as clinic suspicion is low for MRSA infection We will follow on clinical condition and cultures to further adjust medication if needed Thank you for this consultation we will follow the patient along with you Dictation was produced using [employer] dictation software. please excuse any gr ammatical, word or spelling errors. Time with Patient: Greater than 30
[2023-07-18 05:27] LABS: HCT 41.1 % (39.0-53.0); HGB 13.1 gm/dL (13.0-17.5); MCH 31.5 pg (25.0-35.0); MCHC 31.9 g/dL (31.0-37.0); MCV 98.8 fL (80.0-100.0); Mean Platelet Volume 8.5; Platelet Count 194 k/uL (150-450); RBC 4.15 m/uL (4.30-5.90); RDW 12.5 % (11.5-15.5); WBC 7.5 k/uL (3.8-10.6)
[2023-07-18 05:38] LABS: Prothrombin Time 11.3 sec (10.0-12.5)
[2023-07-18 05:48] LABS: ALT 12 U/L (4-49); AST 17 U/L (17-59); African American GFR (CKD) >90 (>60 ml/min/1.73 sqM); Albumin 3.1 g/dL (3.5-5.0); Albumin/Globulin Ratio 1.2; Alkaline Phosphatase 63 U/L (38-126); Anion Gap 7 mmol/L; Blood Urea Nitrogen 11 mg/dL (9-20); Calcium 9.3 mg/dL (8.4-10.2); Carbon Dioxide 22 mmol/L (22-30); Chloride 106 mmol/L (98-107); Globulin 2.6 g/dL; Glucose 148 mg/dL (74-99); Non-African American GFR(CKD) >90 (>60 ml/min/1.73 sqM); Phosphorus 2.7 mg/dL (2.5-4.5); Potassium 3.8 mmol/L (3.5-5.1); Sodium 135 mmol/L (137-145); Total Bilirubin 0.4 mg/dL (0.2-1.3); Total Protein 5.7 g/dL (6.3-8.2)
[2023-07-18 06:30] LABS: Glucose,Whole Blood 152 mg/dL (70-110)
[2023-07-18 08:38] VITALS: TEMP 97.6
[2023-07-18 11:57] LABS: Glucose,Whole Blood 256 mg/dL (70-110)
--- NOTE | 2023-07-18 13:28 | P.DS ---
Providers Date of admission: 07/15/23 15:55 Expected date of discharge: 07/18/23 Attending physician: Mari Saul DO Consults: 07/16/23 13:40 Consult Physician Urgent Consulting Provider: James Jeronimo Consult Reason/Comments: positive blood culture [facility] Do you want consulting provider notified?: Yes Primary care physician: Randal Estrada MD Hospital Course: Discharge Diagnosis: Acute encephalopathy on known dementia Acute delirium Blood cultures positive, contaminant Right shoulder effusion Hx of CVA with residual right sided deficits HTN Tranaminitis Diabetes mellitus type 2 with hyperglycemia GERD Chronic kidney disease Peripheral arterial disease Hospital Course: Patient is a 78-year-old male patient of [facility] with history of GERD, CVA with left-sided hemiplegia, diabetes mellitus type 2 with insulin use, chronic kidney disease, osteoarthritis, right carotid artery occlusion, peripheral vascular disease, posttraumatic stress disorder, and traumatic brain injury who presented to the emergency department at the direction of his primary care team due to blood cultures positive for gram-positive cocci. Of note patient was recently hospitalized and really released from [facility] due to altered mentation. During that hospital stay he underwent a CT head which showed an old right MCA CVA. CTA head and neck which showed a right internal carotid artery occlusion which was felt to be chronic, and an echocardiogram which showed an ejection fraction of 55% with no signs of significant valvular disease. During that hospital stay he saw neurology who felt that his confusion was due to worsening of dementia. Patient was then newly placed on Aricept, Seroquel 12.5 mg, and trazodone 50 mg. He was seen at the [facility] and was found to be much altered from baseline as well as disheveled and therefore was directed to the ER. On arrival to the ER vital signs within normal limits. Initial laboratory analysis included CBC, coags, CMP which were remarkable for sodium 136, BUN 28, glucose 236, and calcium of 10.4. Urinalysis was negative. Patient was admitted and was placed on ampicillin/sulbactam and vanco. ID was consulted. He underwent CT of the chest which showed right lower lobe atelectasis. His procalcitonin came back negative. A1c slightly elevated at 8.5. Spoke with microbiology lab from [facility], show to have 1 out of 2 positive blood culture with Corynebacterium species. Patient being discharged without antibiotics. Tolterodine as well as trazodone discontinued due to increased risk for confusion and delirium. Plan discussed with MUNDO. Patient seen and examined at bedside. Vital signs reviewed and stable. General: Nontoxic, no distress, appears at stated age Cardiovascular: S1S2 reg, with grade II murmur Lungs: CTA bilateral, no rhonchi, no rales, no accessory muscle use Abdominal: Soft, nontender to palpation, no guarding Ext: No gross muscle atrophy, no edema b/l lower extremities, no contractures Neuro: CN II-XI grossly intact, no focal neuro deficits Psych: Alert, oriented to self, appropriate affect A total of 33 minutes of time were spent preparing this complex discharge summary. Patient was discharged on 07/18/2023 at 1136. Patient Condition at Discharge: Stable Plan - Discharge Summary Discharge Rx Participant: Yes New Discharge Prescriptions: Continue lisinopriL [Zestril] 20 mg PO DAILY Aspirin EC [Ecotrin Low Dose] 81 mg PO DAILY Carbamide Peroxide [Debrox Otic] 5 drops LEFT EAR BID Pantoprazole Sodium [Protonix] 40 mg PO DAILY Ofloxacin 0.3% Otic Soln [Floxin 0.3% Otic Soln] 10 drops RIGHT EAR DAILY Fluticasone Nasal [place] [Flonase Nasal [place]] 2 spray EA NOSTRIL DAILY Dapagliflozin Propanediol [Farxiga] 10 mg PO DAILY levETIRAcetam [Keppra] 500 mg PO Q12HR Clopidogrel [Plavix] 75 mg PO DAILY Discontinued Tolterodine ER [Detrol LA] 2 mg PO DAILY traZODone HCL [Desyrel] 50 mg PO HS Discharge Medication List Aspirin EC [Ecotrin Low Dose] 81 mg PO DAILY 07/23/22 [History] Carbamide Peroxide [Debrox Otic] 5 drops LEFT EAR BID 07/23/22 [History] levETIRAcetam [Keppra] 500 mg PO Q12HR 07/23/22 [History] lisinopriL [Zestril] 20 mg PO DAILY 07/23/22 [History] Clopidogrel [Plavix] 75 mg PO DAILY 07/15/23 [History] Dapagliflozin Propanediol [Farxiga] 10 mg PO DAILY 07/15/23 [History] Fluticasone Nasal [place] [Flonase Nasal [place]] 2 spray EA NOSTRIL DAILY 07/15/23 [History] Ofloxacin 0.3% Otic Soln [Floxin 0.3% Otic Soln] 10 drops RIGHT EAR DAILY 07/15/23 [History] Pantoprazole Sodium [Protonix] 40 mg PO DAILY 07/15/23 [History] Follow up Appointment(s)/Referral(s): Randal Estrada MD [Primary Care Provider] - As Needed Patient Instructions/Handouts: Acute Delirium (DC) Activity/Diet/Wound Care/Special Instructions: Please see your PCP. Discharge Disposition: HOME SELF-CARE
[2023-07-18 15:48] VITALS: BP 167/61; PULSE 60; RESP 17
== END 2023-07-18 15:48 | disposition home or self-care (01) | DRG 71 ==
LOC: EC 11:40 → 4SSUR 15:55
PROVIDERS: ADMIT Internal Medicine; ATTEND Internal Medicine
DX: G93.40 Encephalopathy, unspecified (principal); I69.354 Hemiplegia and hemiparesis following cerebral infarction affecting left non-dominant side; R78.81 Bacteremia; F03.C0 Unspecified dementia, severe, without behavioral disturbance, psychotic disturbance, mood disturbance, and anxiety; F43.10 Post-traumatic stress disorder, unspecified; I12.9 Hypertensive chronic kidney disease with stage 1 through stage 4 chronic kidney disease, or unspecified chronic kidney disease; I65.21 Occlusion and stenosis of right carotid artery; K21.9 Gastro-esophageal reflux disease without esophagitis; N18.9 Chronic kidney disease, unspecified; E78.5 Hyperlipidemia, unspecified; E11.51 Type 2 diabetes mellitus with diabetic peripheral angiopathy without gangrene; E11.22 Type 2 diabetes mellitus with diabetic chronic kidney disease; B96.89 Other specified bacterial agents as the cause of diseases classified elsewhere; E11.65 Type 2 diabetes mellitus with hyperglycemia; Z79.02 Long term (current) use of antithrombotics/antiplatelets; Z79.4 Long term (current) use of insulin; Z79.82 Long term (current) use of aspirin; Z79.84 Long term (current) use of oral hypoglycemic drugs; Z79.899 Other long term (current) drug therapy
CPT/HCPCS: 36415; 71250; 74019; 80053; 80061; 80177; 81003; 82565; 83036; 83605; 83735; 84100; 84145; 85025; 85027; 85610; 85652; 85730; 86140; 87040; 93005; 94640; 99285

== ENCOUNTER 2023-08-31 08:39 | Inpatient (IN) | payer OTHER ==
--- NOTE | 2023-08-31 08:48 | ED ---
General Adult HPI - General Stated complaint: Stroke Symptoms - History of Present Illness Initial comments: Dictation was produced using [employer] 3D dictation software. please excuse any grammatical, word or spelling errors. Chief Complaint: 78-year-old male with past medical history of CVA, TIA, diabetes, dyslipidemia hypertension and memory. Presents to the emergency department for strokelike symptoms History of Present Illness: Patient is an 78-year-old male he is hard of h earing. [facility] is [facility] in [facility] for strokelike symptoms. This morning he was seen last normal approximately 30 to 45 minutes prior to arrival. At the [facility] he was noted to have strokelike symptoms. He was seen slumped over in his chair with left-sided facial droop. There was concern that patient was not moving the left side of his body very well. Patient has history of memory impairment and hearing issues. Upon EMS arrival they yelled into his ear and he woke right up. Initially he did not appear to be moving his left extremities. He was noted to have a left-sided facial droop and some drooling. En route to the emergency department patient's extremities were moving better. He does not take any anticoagulation medications. Unable to obtain ROS secondary to patient's mental status - Related Data Home Medications Medication Instructions Recorded Confirmed levETIRAcetam [Keppra] 500 mg PO BID 07/23/22 08/31/23 lisinopriL [Zestril] 20 mg PO DAILY 07/23/22 08/31/23 Clopidogrel [Plavix] 75 mg PO DAILY 07/15/23 08/31/23 Dapagliflozin Propanediol [Farxiga] 10 mg PO DAILY 07/15/23 08/31/23 Pantoprazole Sodium [Protonix] 40 mg PO DAILY 07/15/23 08/31/23 Acetaminophen Tab [Tylenol] 650 mg PO Q8H PRN 08/31/23 08/31/23 Aspirin EC [Ecotrin Low Dose] 81 mg PO DAILY 08/31/23 08/31/23 Ergocalciferol [Vitamin D2 (1250 1,250 mcg PO FR 08/31/23 08/31/23 Mcg = 55267 Iu)] Ondansetron [Zofran] 4 mg PO Q4H PRN 08/31/23 08/31/23 metFORMIN HCL ER [Glucophage XR] 500 mg PO DAILY 08/31/23 08/31/23 Allergies Allergy/AdvReac Type Severity Reaction Status Date / Time No Known Allergies Allergy Verified 08/31/23 09:22 Review of Systems ROS Statement: Those systems with pertinent positive or pertinent negative responses have been documented in the HPI. ROS Other: All systems not noted in ROS Statement are negative. Past Medical History Past Medical History: CVA/TIA, Diabetes Mellitus, Hyperlipidemia, Hypertension, Memory Impairment Additional Past Medical History / Comment(s): TBI History of Any Multi-Drug Resistant Organisms: None Reported Past Surgical History: Tonsillectomy Additional Past Surgical History / Comment(s): left carotid artery stent Past Anesthesia/Blood Transfusion Reactions: Unable to Obtain Past Psychological History: No Psychological Hx Reported Smoking Status: Former smoker Past Alcohol Use History: None Reported Past Drug Use History: None Reported General Exam - General Exam Comments Initial Comments: PHYSICAL EXAM: General Impression: Alert and oriented x3, not in acute distress HEENT: Normocephalic atraumatic, extra-ocular movements intact, pupils equal and reactive to light bilaterally, mucous membranes moist. Cardiovascular: Heart regular rate and rhythm Chest: Able to complete full sentences, no retractions, no tachypnea Abdomen: abdomen soft, non-tender, non-distended, no organomegaly Musculoskeletal: Pulses present and equal in all extremities, no peripheral edema Motor: no focal deficits noted Neurological: Left-sided facial droop, function of extremities are symmetrical, denies any diminished sensation to light touch of the extremities Skin: Intact with no visualized rashes Psych: Normal affect and mood Course Vital Signs 08/31/23 08/31/23 08/31/23 08:45 08:55 09:00 Temperature 97.4 F L Pulse Rate 57 L 38 L 50 L Respiratory 18 18 Rate Blood Pressure 138/61 138/61 O2 Sat by Pulse 98 96 Oximetry 08/31/23 08/31/23 08/31/23 09:06 09:32 10:00 Temperature Pulse Rate 48 L 49 L 51 L Respiratory 18 18 13 Rate Blood Pressure 146/57 125/51 125/51 O2 Sat by Pulse 92 L 97 92 L Oximetry - Reevaluation(s) Reevaluation #1: 08/31/23 08:49 Patient seen and evaluated immediately upon arrival in the ambulance hallway. Patient does have appreciable facial droop however he does not have any other focal deficits. Patient is very hard of hearing. He does have a history of memory impairment. Patient not a candidate for alteplase due to risk outweigh the benefits and rapidly improving symptoms. Reevaluation #2: 08/31/23 09:05 Case was discussed with stroke neurologist, Dr. Harris at 8:58 AM who agrees that patient is not a candidate for thrombolytics. EKG Findings - EKG Comments: EKG Findings:: My EKG interpretation: Ventricular rate 52. Right bundle branch block interpretation limited due to significant artifact. QRS 144, QTc 459.. No NC prolongation, no QTC prolongation, no ST or T-wave changes noted. EKG compared to July 15, 2023 showing no changes. Overall, this EKG is unremarkable Medical Decision Making - Medical Decision Making Was pt. sent in by a medical professional or institution (, PA, NURSING EXECUTIVE, urgent care, hospital, or [facility]...) When possible be specific @ -No Did you speak to anyone other than the patient for history (EMS, parent, family, police, friend...)? What history was obtained from this source @ -Some history obtained from EMS as described above Did you review nursing and triage notes (agree or disagree)? Why? @ -I reviewed and agree with nursing and triage notes Were old charts reviewed (outside hosp., previous admission, EMS record, old EKG, old radiological studies, urgent care reports/EKG's, [facility] records)? Report findings @ -No old charts were reviewed Differential Diagnosis (chest pain, altered mental status, abdominal pain women, abdominal pain men, vaginal bleeding, musculoskeletal, weakness, fever, dyspnea, syncope, headache, dizziness, GI bleed, back pain, seizure, CVA, palpatations, mental health)? @ - Differential CVA: Ischemic stroke, hemorrhagic stroke, brain tumor, atypical migraine, Wernicke's encephalopathy, seizure, multiple sclerosis, meningitis, encephalitis, hypoglycemia, Guillain-Barry, electrolytes disturbance, myasthenia gravis.... This is not meant to be an all-inclusive list EKG interpreted by me (3pts min.). @ -See above X-rays interpreted by me (1pt min.). @ -Chest x-ray is nonacute CT interpreted by me (1pt min.). @ -CT scan of the brain shows large area of encephalomalacia in the remote remote right MCA territory. CT angiography shows right ICA occlusion. U/S interpreted by me (1pt. min.). @ -None done What testing was considered but not performed or refused? (CT, X-rays, U/S, labs)? Why? @ -None What meds were considered but not given or refused? Why? @ -Thrombolytics were considered. Risk outweigh the benefits as described above Was smoking cessation discussed for >3mins.? @ -No Were there social determinants of health that impacted care today? How? (Homelessness, low income, unemployed, alcoholism, drug addiction, transportation, low edu. Level, literacy, decrease access to med. care, half-way, rehab)? @ -No Was there de-escalation of care discussed even if they declined (Discuss DNR or withdrawal of care, Hospice)? DNR status @ -No What co-morbidities impacted this encounter? (DM, HTN, Smoking, COPD, CAD, Cancer, CVA, ARF, Chemo, Hep., AIDS, mental health diagnosis, sleep apnea, morbid obesity)? @ -History of CVA and dementia Was patient admitted / discharged? Hospital course, mention meds given and route, prescriptions, significant lab abnormalities, going to OR and other pertinent info. @ -78-year-old male presents to the emergency department for strokelike symptoms. Vital signs upon arrival shows findings within acceptable limits. Did have some brief episodes of bradycardia in the high to mid 30s. Those episodes lasted briefly only. Laboratory evaluation obtained. CBC, coag panel, metabolic panel is unremarkable. CT brain shows large area of encephalomalacia with no acute processes. CT angiography shows right ICA occlusion. Chest x-ray is nonacute. Patient reevaluated bedside at room 6 on to be stable medical ad dition. Still has appreciable left-sided facial droop. Family at the bedside states that patient seems a little bit more confused than usual. Daughter at the bedside states that patient is DNR. Patient given aspirin will be admitted with consultation to cardiology and neurology. Case discussed with neurologist as well. Did you discuss the management of the patient with other professionals (pr ofessionals i.e. , PA, NURSING EXECUTIVE, lab, RT, psych nurse, social work instructor, marketing and communications officer, teacher, tax revenue officer, senior case manager)? Give summary @ -Yes as described above Was critical care preformed (if so, how long)? @ -Yes, 33 minutes Undiagnosed new problem with uncertain prognosis? @ -No Drug Therapy requiring intensive monitoring for toxicity (Heparin, Nitro, Insulin, Cardizem)? @ -No Were any procedures done? @ -No Diagnosis/symptom? Acute, or Chronic, or Acute on Chronic? Uncomplicated (without systemic symptoms) or Complicated (systemic symptoms)? @ -Code stroke, bradycardia Side effects of treatment? @ -No Exacerbation, Progression, or Severe Exacerbation? @ -No Poses a threat to life or bodily function? How? (Chest pain, [place], [place], pneumonia, PE, COPD, DKA, ARF, appy, cholecystitis, CVA, Diverticulitis, Homicidal, Suicidal, threat to staff... and all critical care pts) @ -yes - Lab Data Result diagrams: 08/31/23 09:09 08/31/23 09:09 Lab Results 08/31/23 08/31/23 08/31/23 Range/Units 09:09 09:09 09:09 WBC 7.6 (3.8-10.6) k/uL RBC 3.98 L (4.30-5.90) m/uL Hgb 12.4 L (13.0-17.5) gm/dL Hct 40.1 (39.0-53.0) % MCV 100.7 H (80.0-100.0) fL MCH 31.1 (25.0-35.0) pg MCHC 30.9 L (31.0-37.0) g/dL RDW 13.1 (11.5-15.5) % Plt Count 180 (150-450) k/uL MPV 8.3 Neutrophils % 68 % Lymphocytes % 18 % Monocytes % 5 % Eosinophils % 8 % Basophils % 1 % Neutrophils # 5.1 (1.3-7.7) k/uL Lymphocytes # 1.4 (1.0-4.8) k/uL Monocytes # 0.4 (0-1.0) k/uL Eosinophils # 0.6 (0-0.7) k/uL Basophils # 0.1 (0-0.2) k/uL PT 11.3 (10.0-12.5) sec INR 1.0 (<1.2) APTT 19.0 L (22.0-30.0) sec Sodium 133 L (137-145) mmol/L Potassium 4.3 (3.5-5.1) mmol/L Chloride 106 (98-107) mmol/L Carbon Dioxide 22 (22-30) mmol/L Anion Gap 5 mmol/L BUN 16 (9-20) mg/dL Creatinine 0.86 (0.66-1.25) mg/dL Est GFR (CKD-EPI)AfAm >90 (>60 ml/min/1.73 sqM) Est GFR (CKD-EPI)NonAf 82 (>60 ml/min/1.73 sqM) Glucose 179 H (74-99) mg/dL POC Glucose (mg/dL) (70-110) mg/dL POC Glu [employer] ID Calcium 9.5 (8.4-10.2) mg/dL Magnesium 1.8 (1.6-2.3) mg/dL Total Bilirubin 0.7 (0.2-1.3) mg/dL AST 19 (17-59) U/L ALT 10 (4-49) U/L Alkaline Phosphatase 48 (38-126) U/L Creatine Kinase 30 L (55-170) U/L Troponin I (0.000-0.034) ng/mL Total Protein 5.6 L (6.3-8.2) g/dL Albumin 3.2 L (3.5-5.0) g/dL 08/31/23 08/31/23 Range/Units 09:09 09:10 WBC (3.8-10.6) k/uL RBC (4.30-5.90) m/uL Hgb (13.0-17.5) gm/dL Hct (39.0-53.0) % MCV (80.0-100.0) fL MCH (25.0-35.0) pg MCHC (31.0-37.0) g/dL RDW (11.5-15.5) % Plt Count (150-450) k/uL MPV Neutrophils % % Lymphocytes % % Monocytes % % Eosinophils % % Basophils % % Neutrophils # (1.3-7.7) k/uL Lymphocytes # (1.0-4.8) k/uL Monocytes # (0-1.0) k/uL Eosinophils # (0-0.7) k/uL Basophils # (0-0.2) k/uL PT (10.0-12.5) sec INR (<1.2) APTT (22.0-30.0) sec Sodium (137-145) mmol/L Potassium (3.5-5.1) mmol/L Chloride (98-107) mmol/L Carbon Dioxide (22-30) mmol/L Anion Gap mmol/L BUN (9-20) mg/dL Creatinine (0.66-1.25) mg/dL Est GFR (CKD-EPI)AfAm (>60 ml/min/1.73 sqM) Est GFR (CKD-EPI)NonAf (>60 ml/min/1.73 sqM) Glucose (74-99) mg/dL POC Glucose (mg/dL) 173 H (70-110) mg/dL POC Glu [employer] ID Kishor Santamaria Calcium (8.4-10.2) mg/dL Magnesium (1.6-2.3) mg/dL Total Bilirubin (0.2-1.3) mg/dL AST (17-59) U/L ALT (4-49) U/L Alkaline Phosphatase (38-126) U/L Creatine Kinase (55-170) U/L Troponin I <0.012 (0.000-0.034) ng/mL Total Protein (6.3-8.2) g/dL Albumin (3.5-5.0) g/dL Disposition Clinical Impression: CVA (cerebral vascular accident) Disposition: ADMITTED IP TO THIS [facility] Condition: Fair Referrals: Amaury Wells DO [Primary Care Provider] - 1-2 days Decision Time: 10:48
[2023-08-31 09:12] LABS: Glucose,Whole Blood 173 mg/dL (70-110)
--- NOTE | 2023-08-31 09:20 | CT ---
EXAMINATION TYPE: CODE STROKE: CT brain wo contr CT DLP: 1135.1 mGycm, Automated exposure control for dose reduction was used. DATE OF EXAM: 08/31/2023 9:09 AM COMPARISON: 06/14/2022.. CLINICAL INDICATION:Male, 78 years old with history of Neuro deficit, acute, stroke suspected, CODE S TROKE TECHNIQUE: Brain: Axial CT images of the brain were obtained with coronal and sagittal reformats created and rev iewed. Contrast used: None. Oral contrast used: None. FINDINGS: Brain: Extra-axial spaces: No abnormal extra-axial fluid collections. Ventricular system: Within normal limits Cerebral parenchyma: Encephalomalacia of the right MCA territory involving the right temporal lobe. N o acute intraparenchymal hemorrhage or mass effect. The remainder of the gleason-white junctions are we ll differentiated. Cerebellum: Unremarkable. Mass effect: No evidence of midline shift. Intracranial vasculature: unremarkable Soft tissues: Normal. Calvarium/osseous structures: No depressed skull fracture. Paranasal sinuses and mastoid air cells: Mild scattered paranasal sinus disease. Visualized orbits: Orbital contents are intact. IMPRESSION: 1. No acute intracranial process. 2. Remote right MCA territory injury with encephalomalacia involving the temporal lobe.
[2023-08-31 09:26] LABS: Basophils # (A) 0.1 k/uL (0-0.2); Basophils % (A) 1 %; Eosinophils # (A) 0.6 k/uL (0-0.7); Eosinophils % (A) 8 %; HCT 40.1 % (39.0-53.0); HGB 12.4 gm/dL (13.0-17.5); Lymphocytes # (A) 1.4 k/uL (1.0-4.8); Lymphocytes % (A) 18 %; MCH 31.1 pg (25.0-35.0); MCHC 30.9 g/dL (31.0-37.0); MCV 100.7 fL (80.0-100.0); Mean Platelet Volume 8.3; Monocytes # (A) 0.4 k/uL (0-1.0); Monocytes % (A) 5 %; Neutrophils # (A) 5.1 k/uL (1.3-7.7); Neutrophils % (A) 68 %; Platelet Count 180 k/uL (150-450); RBC 3.98 m/uL (4.30-5.90); RDW 13.1 % (11.5-15.5); WBC 7.6 k/uL (3.8-10.6)
[2023-08-31 09:39] LABS: Prothrombin Time 11.3 sec (10.0-12.5)
--- NOTE | 2023-08-31 09:41 | CT ---
EXAMINATION TYPE: CT angio head neck DATE OF EXAM: 08/31/2023 COMPARISON: HISTORY: CODE STROKE CT DLP: 478.4 mGycm CONTRAST: Performed without and with IV Contrast, patient injected with 65 ML mL of Isovue 370. Combination Contrast CTA cervical carotids and [facility] CTA cervical carotids with 3-D recons truction Contrast CTA of the cervical carotids was performed 3-D reconstruction imaging obtained at a separate workstation. Right carotid system: Mild plaque is seen of the right common carotid artery. There is severe plaque also noted at the carotid bulb and proximal ICA occlusion right ICA. Left carotid system: Mild plaque is seen of the left common carotid artery stent is noted proximal le ft ICA. No hemodynamically significant stenosis present. ECA is patent. Left vertebral artery appears unremarkable. IMPRESSION: 1. Right ICA occlusion. 2. Stent proximal left ICA without hemodynamic significant stenosis. CTA [facility] [place] with 3-D reconstruction Contrast CTA of the [facility] [place] was performed 3-D reconstruction imaging obtained at a separate workstation. Occlusion right ICA and intracranial portion of the right ICA with nonvisualization of the right MCA. Left intracranial ICA as well as left MCA and anterior cerebral arteries are patent. Posterior circu lation appears patent. I do not see evidence for sizable aneurysm or vascular malformation. Please n ote MRI provides greater sensitivity and specificity. Visualized brain appears grossly unremarkable. IMPRESSION: 1. Occlusion right ICA and intracranial portion of the right ICA with nonvisualization of the right M CA. NASCET criteria was used in interpretation of this exam?
[2023-08-31 09:45] LABS: ALT 10 U/L (4-49); African American GFR (CKD) >90 (>60 ml/min/1.73 sqM); Albumin 3.2 g/dL (3.5-5.0); Anion Gap 5 mmol/L; Blood Urea Nitrogen 16 mg/dL (9-20); Calcium 9.5 mg/dL (8.4-10.2); Carbon Dioxide 22 mmol/L (22-30); Chloride 106 mmol/L (98-107); Creatine Kinase 30 U/L (55-170); Glucose 179 mg/dL (74-99); Non-African American GFR(CKD) 82 (>60 ml/min/1.73 sqM); Sodium 133 mmol/L (137-145); Total Bilirubin 0.7 mg/dL (0.2-1.3); Total Protein 5.6 g/dL (6.3-8.2)
[2023-08-31 09:47] LABS: AST 19 U/L (17-59); Alkaline Phosphatase 48 U/L (38-126); Magnesium 1.8 mg/dL (1.6-2.3); Potassium 4.3 mmol/L (3.5-5.1)
--- NOTE | 2023-08-31 10:24 | XR ---
EXAMINATION TYPE: XR chest 2V DATE OF EXAM: 08/31/2023 COMPARISON: NONE HISTORY: Shortness of breath TECHNIQUE: Frontal and lateral views of the chest are obtained. FINDINGS: Scattered senescent parenchymal changes noted. Hyperinflation compatible with COPD. No evidence for infiltrate. No evidence for atelectasis. Heart size is stable. Mediastinal structures are stable and grossly unremarkable. No evidence for hilar prominence. Degenerative changes dorsal spine. IMPRESSION: 1. No evidence for acute pulmonary disease.
[2023-08-31] MEDS ORDERED: NALOXONE 0.4 MG/ML 1 ML VIAL IV PRN (10:43)
[2023-08-31] MEDS: ASPIRIN 81 MG PO STA (10:56)
[2023-08-31] MEDS: SODIUM CHLORIDE 0.9% 1,000 ML IV SCH (11:01)
[2023-08-31] MEDS: CLOPIDOGREL 75 MG TAB PO SCH (16:06)
[2023-08-31] MEDS ORDERED: ONDANSETRON 4 MG TAB PO PRN (17:48)
[2023-08-31] MEDS ORDERED: ACETAMINOPHEN TAB 325 MG TAB PO PRN (17:48)
[2023-08-31] MEDS ORDERED: DEXTROSE 50% SYRINGE 50 ML IVP PRN ×2 (17:49)
[2023-08-31 18:11] LABS: Glucose,Whole Blood 204 mg/dL (70-110)
[2023-08-31] MEDS: ENOXAPARIN 40 MG/0.4 ML SYRINGE SQ SCH (18:14)
[2023-08-31] MEDS: INSULIN ASPART (NovoLOG) 100 UNIT/ML VIAL SQ SCH (18:14)
[2023-08-31] MEDS: ATORVASTATIN 40 MG TAB PO SCH (21:08)
[2023-08-31] MEDS: levETIRAcetam 500 MG TAB PO SCH (21:09)
--- NOTE | 2023-08-31 21:46 | P.HPIM ---
History of Present Illness H&P Date: 08/31/23 Chief Complaint: Slumped over This is a 78-year-old patient follows Dr. Wells. Patient was at [facility] for respite care. Patient has been living with his daughter Deidre. Plan is for patient to be going to an [facility]. Today at the [facility] patient was noticed to be slouched over to 1 side. Left side of the face was drooling. With some asymmetry. Patient was brought into the ER. Apparently during that transport patient left-sided weakness improved. According to the daughter patient's had a left-sided weakness/stroke before. Affecting also the left side of the vision. Significant improvement has happened with time. Patient face has some baseline asymmetry. With left nasolabial fold some flattening which is at her baseline. Patient significant cognitive impairment. Though he does recognize his daughter and grandson. Oftentimes takes his daughter for his sister. Patient able to feed himself. Has control on his bowels. Review of systems: Difficult to obtain because of patient's cognitive impairment Social history: Patient currently living at [facility] under respite care. Patient is due to go to [facility]. [place] [facility]. Former smoker Physical examination: VITAL SIGNS: 97.4, 57, 18, 138/61, 98% on 2 L upon presentation GENERAL: BMI 23.4, resting bed awake tired. EYES: Pupils equal. Conjunctiva noa l. HEENT: External appearance of nose and ears normal, oral cavity grossly normal. Hard of hearing NECK: JVD not raised; masses not palpable. HEART: First and second heart sounds are normal; no edema. LUNGS: Respiratory rate normal; decreased breath sounds. ABDOMEN: Soft, nontender, liver spleen not palpable, no masses palpable. PSYCH: Patient cannot tell his name. Cannot state the place or the year. l. MUSCULOSKELETAL:No Clubbing/cyanosis;muscles-grossly intact. OA NEUROLOGICAL: Cranial nerves grossly intact; no facial asymmetry, power and sensation grossly intact. LYMPHATICS: No lymph nodes palpable in the axilla and neck INVESTIGATIONS, reviewed in the clinical context: August 31, 2023: White count 7.6 hemoglobin 12.4 platelets 180 sodium 133 potassium 4.3 creatinine 0.86 EKG tracing personally reviewed by me-rate 52. Some right bundle narendra block. 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 Stent proximal left ICA without stenosis Troponin I less than 0.012 Assessment plan: -Probable TIA. Patient has a baseline flattening of left nasolabial fold and some left-sided weakness from prior stroke. As per the daughter Patient does take Plavix and aspirin. 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 Paolo. Follow Accu-Cheks sliding scale -Seizure prophylaxis Keppra 5 mg twice daily -CODE STATUS DNR -l POA: Deidre Vallejo Patient will be closely watched. Given patient's comorbidity and already known occlusion of the right ICA and stent of the left ICA. Will obtain a 2D echo. Patient is already on antiplatelet agents. Past Medical History Past Medical History: CVA/TIA, Diabetes Mellitus, Hyperlipidemia, Hypertension, Memory Impairment Additional Past Medical History / Comment(s): TBI History of Any Multi-Drug Resistant Organisms: None Reported Past Surgical History: Tonsillectomy Additional Past Surgical History / Comment(s): left carotid artery stent Past Anesthesia/Blood Transfusion Reactions: Unable to Obtain Past Psychological History: No Psychological Hx Reported Smoking Status: Former smoker Past Alcohol Use History: None Reported Past Drug Use History: None Reported Medications and Allergies Home Medications Medication Instructions Recorded Confirmed Type levETIRAcetam [Keppra] 500 mg PO BID 07/23/22 08/31/23 History lisinopriL [Zestril] 20 mg PO DAILY 07/23/22 08/31/23 History Clopidogrel [Plavix] 75 mg PO DAILY 07/15/23 08/31/23 History Dapagliflozin Propanediol [Farxiga] 10 mg PO DAILY 07/15/23 08/31/23 History Pantoprazole Sodium [Protonix] 40 mg PO DAILY 07/15/23 08/31/23 History Acetaminophen Tab [Tylenol] 650 mg PO Q8H PRN 08/31/23 08/31/23 History Aspirin EC [Ecotrin Low Dose] 81 mg PO DAILY 08/31/23 08/31/23 History Ergocalciferol [Vitamin D2 (1250 1,250 mcg PO FR 08/31/23 08/31/23 History Mcg = 44196 Iu)] Ondansetron [Zofran] 4 mg PO Q4H PRN 08/31/23 08/31/23 History metFORMIN HCL ER [Glucophage XR] 500 mg PO DAILY 08/31/23 08/31/23 History Allergies Allergy/AdvReac Type Severity Reaction Status Date / Time No Known Allergies Allergy Verified 08/31/23 09:22 Physical Exam Vitals: Vital Signs Temp Pulse Pulse Resp BP BP Pulse Ox 08/31/23 16:00 58 L 17 126/58 96 08/31/23 12:57 56 L 17 118/56 100 08/31/23 11:36 56 L 117/59 08/31/23 11:02 52 L 18 126/60 91 L 08/31/23 10:00 51 L 13 125/51 92 L 08/31/23 09:32 49 L 18 125/51 97 08/31/23 09:06 48 L 18 146/57 92 L 08/31/23 09:00 50 L 18 138/61 96 08/31/23 08:55 38 L 08/31/23 08:45 97.4 F L 57 L 18 138/61 98 Intake and Output 08/31/23 08/31/23 08/31/23 06:59 14:59 22:59 Other: Weight 75.977 kg Results CBC & Chem 7: 08/31/23 09:09 08/31/23 09:09 Labs: Abnormal Lab Results - Last 24 Hours (Table) 08/31/23 08/31/23 08/31/23 Range/Units 09:09 09:09 09:09 RBC 3.98 L (4.30-5.90) m/uL Hgb 12.4 L (13.0-17.5) gm/dL MCV 100.7 H (80.0-100.0) fL MCHC 30.9 L (31.0-37.0) g/dL APTT 19.0 L (22.0-30.0) sec Sodium 133 L (137-145) mmol/L Glucose 179 H (74-99) mg/dL POC Glucose (mg/dL) (70-110) mg/dL Creatine Kinase 30 L (55-170) U/L Total Protein 5.6 L (6.3-8.2) g/dL Albumin 3.2 L (3.5-5.0) g/dL 08/31/23 08/31/23 Range/Units 09:10 18:09 RBC (4.30-5.90) m/uL Hgb (13.0-17.5) gm/dL MCV (80.0-100.0) fL MCHC (31.0-37.0) g/dL APTT (22.0-30.0) sec Sodium (137-145) mmol/L Glucose (74-99) mg/dL POC Glucose (mg/dL) 173 H 204 H (70-110) mg/dL Creatine Kinase (55-170) U/L Total Protein (6.3-8.2) g/dL Albumin (3.5-5.0) g/dL
[2023-09-01] MEDS: metFORMIN 500 MG TAB PO SCH (05:12)
[2023-09-01 06:21] LABS: Glucose,Whole Blood 120 mg/dL (70-110)
[2023-09-01] MEDS: PANTOPRAZOLE 40 MG TABLET PO SCH (06:30)
--- NOTE | 2023-09-01 07:28 | P.CNNES ---
History of Present Illness Consult date: 08/31/23 Requesting physician: Suraj Holguin Reason for Consult: Code stroke History of Present Illness: Patient is a 78-year-old male with history of dementia, hard of hearing, came to the hospital by ambulance today at 8:39 AM. Patient is severely hearing impaired and also has dementia, therefore not able to provide history. As per EMS flowsheet, when they arrived to the [facility], it was reported that patient was found by staff unresponsive to painful stimuli with left-sided weakness and facial droop. Patient has prior history of TIA. Patient does take Plavix. Patient was placed on nonrebreather prior to EMS arrival due to low O2 sats. Patient is alert to verbal stimuli. Patient has left facial droop noted. There was left arm drift noted. Patient was unable to follow commands for accurate fast ED score. Throughout the transport, patient stroke symptoms began to resolve. Patient had no arm drift noted. Patient became more alert to verbal stimuli. No slurred speech noted. Patient's vitals at the scene was blood pressure 121/89, pulse rate 57 respirations 16 saturation 95%. Blood sugar 181. Patient's blood test shows normal WBC, hemoglobin 12.4, platelets 180. PT PTT normal. Sodium 133 potassium 4.3, renal functions are normal. Hepatic panel normal. Troponin negative. EKG showed uncertain regular rhythm. Right axis deviation. CT head revealed no acute intracranial process. Remote right MCA territory injury with encephalomalacia involving the temporal lobe. I personall y reviewed CT head, agree with the findings. CTA of head and neck revealed right ICA occlusion. Stent proximal left ICA without hemodynamic significant stenosis. Patient was evaluated by ED staff on arrival. Patient had left facial droop, but no other focal deficits. Patient was not a candidate for TPA, as risk outweigh the benefits and rapidly improving symptoms. ED staff discussed case with stroke neurologist Dr. Galeana as well, who concurred for now TPA. Home medication includes Keppra 500 mg twice daily, lisinopril, Plavix 75 mg, aspirin 81 mg metformin. Protonix 40 mg. Review of Systems Patient extreme hard of hearing. ROS unobtainable: due to mental status Past Medical History Past Medical History: CVA/TIA, Diabetes Mellitus, Hyperlipidemia, Hypertension, Memory Impairment Additional Past Medical History / Comment(s): TBI History of Any Multi-Drug Resistant Organisms: None Reported Past Surgical History: Tonsillectomy Additional Past Surgical History / Comment(s): left carotid artery stent Past Anesthesia/Blood Transfusion Reactions: Unable to Obtain Past Psychological History: No Psychological Hx Reported Smoking Status: Former smoker Past Alcohol Use History: None Reported Past Drug Use History: None Reported Medications and Allergies Home Medications Medication Instructions Recorded Confirmed Type levETIRAcetam [Keppra] 500 mg PO BID 07/23/22 08/31/23 History lisinopriL [Zestril] 20 mg PO DAILY 07/23/22 08/31/23 History Clopidogrel [Plavix] 75 mg PO DAILY 07/15/23 08/31/23 History Dapagliflozin Propanediol [Farxiga] 10 mg PO DAILY 07/15/23 08/31/23 History Pantoprazole Sodium [Protonix] 40 mg PO DAILY 07/15/23 08/31/23 History Acetaminophen Tab [Tylenol] 650 mg PO Q8H PRN 08/31/23 08/31/23 History Aspirin EC [Ecotrin Low Dose] 81 mg PO DAILY 08/31/23 08/31/23 History Ergocalciferol [Vitamin D2 (1250 1,250 mcg PO FR 08/31/23 08/31/23 History Mcg = 90736 Iu)] Ondansetron [Zofran] 4 mg PO Q4H PRN 08/31/23 08/31/23 History metFORMIN HCL ER [Glucophage XR] 500 mg PO DAILY 08/31/23 08/31/23 History Allergies Allergy/AdvReac Type Severity Reaction Status Date / Time No Known Allergies Allergy Verified 08/31/23 09:22 Physical Examination - Vital Signs Vital Signs: Vital Signs Temp Pulse Pulse Resp BP BP Pulse Ox 08/31/23 12:57 56 L 17 118/56 100 08/31/23 11:36 56 L 117/59 08/31/23 11:02 52 L 18 126/60 91 L 08/31/23 10:00 51 L 13 125/51 92 L 08/31/23 09:32 49 L 18 125/51 97 08/31/23 09:06 48 L 18 146/57 92 L 08/31/23 09:00 50 L 18 138/61 96 08/31/23 08:55 38 L 08/31/23 08:45 97.4 F L 57 L 18 138/61 98 Intake and Output 08/30/23 08/31/23 08/31/23 22:59 06:59 14:59 Other: Weight 75.977 kg Patient is an elderly male, laying comfortably in the bed. Patient is extremely hard of hearing. He was sleeping, but did become alert awake. Patient could not tell the month or the year or the city or state he is in. Patient does have baseline dementia. Speech and language functions are normal. Patient can name all objects presented including pen, glasses, knuck les, thumb at the first. His speech is very fluent without any paraphasic errors. Repetition could not be assessed because he would not understand it despite numerous attempts. His comprehension appears intact to the point he can understand. No aphasia or dysarthria. Attention, concentration and fund of knowledge are all severely limited. On cranial nerve examination, pupils are equal, round and reacting to light, visual felipe revealed left homonymous hemianopia. Extraocular muscles are intact with no nystagmus. Patient has slight flattening of the left nasolabial fold. However face appears normal on active testing. Tongue protrudes in the midline. Palatal elevation and sensation could not be assessed due to mentation, hearing is extremely severely decreased and shoulder shrug normal, facial sensation cannot be assessed. On muscle strength testing, there is no pronator drift and the strength is normal in arms and legs distally and proximally. Deep tendon reflexes are symmetric diminished. Patient has amputated toe right foot, flat on the left. Sensory to touch is equal with no neglect on double simultaneous stimulation. Cerebellar function showed no ataxia for [id number] testing. Cannot assess for [id number] testing. Tone and bulk of muscles normal. Gait deferred.. On general examination, there is no carotid bruit or murmur, S1-S2 audible. Chest is clear on consultation. Abdomen is soft nontender. No organomegaly, bowel sounds present. Peripheral pulses are present. No peripheral edema. Results - Laboratory Findings CBC and BMP: 08/31/23 09:09 08/31/23 09:09 Abnormal Lab Findings: Abnormal Labs 08/31/23 08/31/23 08/31/23 09:09 09:09 09:09 RBC 3.98 L Hgb 12.4 L MCV 100.7 H MCHC 30.9 L APTT 19.0 L Sodium 133 L Glucose 179 H POC Glucose (mg/dL) Creatine Kinase 30 L Total Protein 5.6 L Albumin 3.2 L 08/31/23 09:10 RBC Hgb MCV MCHC APTT Sodium Glucose POC Glucose (mg/dL) 173 H Creatine Kinase Total Protein Albumin Assessment and Plan Assessment: * Possible stroke/TIA, versus seizure with postictal Micah's paralysis. Patient was found by staff unresponsive to painful stimuli with left-sided weakness/facial droop. * History of chronic right ICA occlusion * History of right MCA territory CVA * Severely hard of hearing * Dementia * Diabetes * Hypertension * Hyperlipidemia Plan: * It is uncertain if patient has stroke/TIA or some other event. At present patient's examination is probably back to baseline. Patient has very subtle left facial asymmetry, which could be chronic from his previous old right MCA territory stroke. Patient also has left homonymous hemianopia, which could potentially be chronic as well. * CTA of head and neck revealed right ICA occlusion. Stent proximal left ICA without hemodynamic significant stenosis. * Resume aspirin 81 mg and Plavix 75 mg. * Agree with checking 2-D echo to rule out embolic source. * Check EEG to rule out any epileptiform activity. Patient does take Keppra 500 mg twice a day. * Hemoglobin A1c 8.6 on 08/09/2023. Recommend optimize control of diabetes to target A1c < 7.0 * Lipid panel with cholesterol 205, LDL 128, HDL 45, triglycerides 155. Patient has hyperlipidemia, was not taking any statins. We will start Lipitor 40 mg daily. * Telemetry monitoring, work arrhythmia. * DVT prophylaxis: Lovenox 40 g daily. * Patient is a DO NOT RESUSCITATE. * Neurology will follow. Thank you for the consult.
[2023-09-01] MEDS: lisinopriL 20 MG TAB PO SCH (08:44)
[2023-09-01] MEDS: DAPAGLIFLOZIN PROPANEDIOL 10 MG TABLET PO SCH (08:44)
[2023-09-01] MEDS: ASPIRIN 81 MG PO SCH (08:44)
[2023-09-01 11:06] VITALS: TEMP 97.5
[2023-09-01 11:15] LABS: Glucose,Whole Blood 171 mg/dL (70-110)
--- NOTE | 2023-09-01 12:16 | EEG ---
ELECTROENCEPHALOGRAM REPORT PREAMBLE: This is an 78-year-old male who was brought to the hospital after he was found to be slouched over to one side. He was unresponsive. This study is performed to evaluate for any epileptiform activity. CURRENT MEDICATIONS: 1. Plavix. 2. Farxiga. 3. Lovenox. 4. Insulin. 5. Keppra. 6. Zestril. 7. Metformin. 8. Protonix. EEG FINDINGS: This is a 21-channel digital EEG recorded with video component, utilizing 10/20 international system with referential and bipolar montages. Background consists of well-developed, moderately well-regulated, predominantly 6-7 hertz low amplitude theta activity seen in bihemispheric region. Background is posterior dominant and seems to be minimally reactive to eye opening and closing. Photic stimulation was not performed. Hyperventilation not done. Drowsiness and some stage 2 sleep was seen with appearance of sleep spindles with further slowing of the background. No focal or generalized epileptiform activity was seen. IMPRESSION: This is an abnormal EEG due to background slowing, suggestive of mild encephalopathy due to metabolic, vascular, or neurodegenerative causes. No focal, lateralized, or epileptiform activity was seen. MMODL / IJN: [id number] /
[2023-09-01 12:19] VITALS: BP 149/63; PULSE 61; RESP 18
--- NOTE | 2023-09-01 18:23 | CA ---
Transthoracic Echo Report Name: Malcolm Vallejo Age: 78 Gender: M : 1945 Exam Date: 09/01/2023 09:08 Exam Location: [place] [facility] Ht (in): 71 Wt (lb): 167 Ordering Physician: Vahid Rueda MD Attending/Referring Phys: Beam Doffer Mirna Ferreira RDCS Procedure CPT: Indications: rule out thrombus Cardiac Hx: Technical Quality: Poor, Technically difficult study Contrast 1: Definity Total Dose (mL): 2 Contrast 2: Total Dose (mL): MEASUREMENTS (Male / Female) Normal Values 2D ECHO LVOT Diameter 2.3 cm M-MODE Aortic Root Diameter MM 3.9 cm LA Systolic Diameter MM 2.8 cm LA Ao Ratio MM 0.7 AV Cusp Separation MM 0.7 cm DOPPLER AV Peak Velocity 329.1 cm/s AV Peak Gradient 43.3 mmHg AV Mean Velocity 241.0 cm/s AV Mean Gradient 25.8 mmHg AV Velocity Time Integral 77.7 cm AI Peak Velocity 302.8 cm/s AI Peak Gradient 36.7 mmHg AI Pressure Half Time 861.6 ms LVOT Peak Velocity 65.2 cm/s LVOT Peak Gradient 1.7 mmHg LVOT Velocity Time Integral 19.7 cm LVOT Stroke Volume 84.0 cm??? LVOT Stroke Volume Index 43.0 ml/m??? LVOT Cardiac Index 3791.6 cm???/min???m??? AV Area Cont Eq vti 1.1 cm??? AV Area Cont Eq pk 0.8 cm??? Mitral E Point Velocity 54.0 cm/s Mitral A Point Velocity 79.6 cm/s Mitral E to A Ratio 0.7 MV Deceleration Time 435.8 ms MV E' Velocity 6.0 cm/s Mitral E to MV E' Ratio 9.0 FINDINGS Left Ventricle Left ventricular ejection fraction is estimated at 55-60 %. Left ventricle not well visualized. Right Ventricle Right ventricle not well visualized. Right Atrium Right atrium not well visualized. Left Atrium Left atrium not well visualized. Mitral Valve Mitral valve not well visualized. Trace mitral regurgitation. Aortic Valve Aortic valve not well visualized. Moderate aortic stenosis with a peak gradient of 45 mmHg and a mean gradient of 31mmHg. mild aortic regurgitation Tricuspid Valve Tricuspid valve not well visualized. Trace tricuspid regurgitation. Pulmonic Valve Structurally normal pulmonic valve. No pulmonic stenosis. Pericardium No pericardial or pleural effusion. Aorta Mildly dilated aortic annulus. CONCLUSIONS Poor, Technically difficult study. Limited views Left ventricular ejection fraction is estimated at 55-60 %. Calcific aortic valve which is not well visualized At least moderate aortic stenosis with mean gradient of 31 mmHg, mild aortic regurgitation Previewed by: Dr Olman Carter (Electronically Signed) Final Date: 01 September 2023 18:22
--- NOTE | 2023-09-01 19:55 | P.DS ---
Providers Date of admission: 08/31/23 10:43 Expected date of discharge: 09/01/23 Attending physician: Vahid Rueda Consults: 08/31/23 10:43 Consult Physician Routine Consulting Provider: Trent Baca Consult Reason/Comments: code stroke Do you want consulting provider notified?: Already Contacted Consult Physician Routine Consulting Provider: Olman Carter Consult Reason/Comments: bradycardia Do you want consulting provider notified?: Yes Primary care physician: [facility] Course: Chief Complaint: Slumped over This is a 78-year-old patient follows Dr. Wells. Patient was at [facility] for respite care. Patient has been living with his daughter Deidre. Plan is for patient to be going to an [facility]. Today at the [facility] patient was noticed to be slouched over to 1 side. Left side of the face was drooling. With some asymmetry. Patient was brought into the ER. Apparently during that transport patient left-sided weakness improved. According to the daughter patient's had a left-sided weakness/stroke before. Affecting also the left side of the vision. Significant improvement has happened with time. Patient face has some baseline asymmetry. With left nasolabial fold some flattening which is at her baseline. Patient significant cognitive impairment. Though he does recognize his daughter and grandson. Oftentimes takes his daughter for his sister. Patient able to feed himself. Has control on his bowels. August 31: Patient comfortable. Tolerating diet. As per discussion with daughter yesterday patient is at baseline. Patient be DC'd to assisted living. Discussed with Dr. Baca Social history: Patient currently living at [facility] under respite care. Patient is due to go to [facility]. [facility]. Former smoker Physical examination: VITAL SIGNS: 97.5, 61, 18, 149/63, 93% room air GENERAL: Reclining in bed eating lunch comfortable EYES: Pupils equal. Conjunctiva noa l. HEENT: External appearance of nose and ears normal, oral cavity grossly normal. Hard of hearing NECK: JVD not raised; masses not palpable. HEART: First and second heart sounds are normal; no edema. LUNGS: Respiratory rate normal; decreased breath sounds. ABDOMEN: Soft, nontender, liver spleen not palpable, no masses palpable. PSYCH: Patient cannot tell his name. Cannot state the place or the year. l. MUSCULOSKELETAL:No Clubbing/cyanosis;muscles-grossly intact. OA NEUROLOGICAL: Flattening of left nasolabial fold-and mild weakness on the left side chronic INVESTIGATIONS, reviewed in the clinical context: 2D echocardiogram: EF 55 to 60% moderate arctic stenosis. EEG negative for epileptiform activity. August 31, 2023: White count 7.6 hemoglobin 12.4 platelets 180 sodium 133 potassium 4.3 creatinine 0.86 EKG tracing personally reviewed by me-rate 52. Some right bundle narendra block. 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 Stent proximal left ICA without stenosis Troponin I less than 0.012 Assessment plan: -Probable TIA. Patient has a baseline flattening of left nasolabial fold and some left-sided weakness from prior stroke. As per the daughter Continue Plavix and aspirin. 2D echo unremarkable. 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 Farxiga. Follow Accu-Cheks sliding scale -Seizure prophylaxis Keppra 5 mg twice daily -CODE STATUS DNR -l POA: Deidre Yoni Disposition: Home pending a place at [facility] home Past Medical History Past Medical History: CVA/TIA, Diabetes Mellitus, Hyperlipidemia, Hypertension, Memory Impairment Additional Past Medical History / Comment(s): TBI History of Any Multi-Drug Resistant Organisms: None Reported Past Surgical History: Tonsillectomy Additional Past Surgical History / Comment(s): left carotid artery stent Past Anesthesia/Blood Transfusion Reactions: Unable to Obtain Past Psychological History: No Psychological Hx Reported Smoking Status: Former smoker Past Alcohol Use History: None Reported Past Drug Use History: None Reported Plan - Discharge Summary Discharge Rx Participant: No New Discharge Prescriptions: New Atorvastatin [Lipitor] 40 mg PO HS #30 tab INSULIN ASPART (NovoLOG) [NovoLOG (formulary)] 0 unit SQ AC-TID each Continue lisinopriL [Zestril] 20 mg PO DAILY Pantoprazole Sodium [Protonix] 40 mg PO DAILY Dapagliflozin Propanediol [Farxiga] 10 mg PO DAILY Acetaminophen Tab [Tylenol] 650 mg PO Q8H PRN PRN Reason: Pain Ergocalciferol [Vitamin D2 (1250 Mcg = 70522 Iu)] 1,250 mcg PO FR metFORMIN HCL ER [Glucophage XR] 500 mg PO DAILY levETIRAcetam [Keppra] 500 mg PO BID Clopidogrel [Plavix] 75 mg PO DAILY Aspirin EC [Ecotrin Low Dose] 81 mg PO DAILY Ondansetron [Zofran] 4 mg PO Q4H PRN PRN Reason: Nausea Discharge Medication List levETIRAcetam [Keppra] 500 mg PO BID 07/23/22 [History] lisinopriL [Zestril] 20 mg PO DAILY 07/23/22 [History] Clopidogrel [Plavix] 75 mg PO DAILY 07/15/23 [History] Dapagliflozin Propanediol [Farxiga] 10 mg PO DAILY 07/15/23 [History] Pantoprazole Sodium [Protonix] 40 mg PO DAILY 07/15/23 [History] Acetaminophen Tab [Tylenol] 650 mg PO Q8H PRN 08/31/23 [History] Aspirin EC [Ecotrin Low Dose] 81 mg PO DAILY 08/31/23 [History] Ergocalciferol [Vitamin D2 (1250 Mcg = 61115 Iu)] 1,250 mcg PO FR 08/31/23 [History] Ondansetron [Zofran] 4 mg PO Q4H PRN 08/31/23 [History] metFORMIN HCL ER [Glucophage XR] 500 mg PO DAILY 08/31/23 [History] Atorvastatin [Lipitor] 40 mg PO HS #30 tab 09/01/23 [Rx] INSULIN ASPART (NovoLOG) [NovoLOG (formulary)] 0 unit SQ AC-TID each 09/01/23 [Rx] Follow up Appointment(s)/Referral(s): neurology, [Other] - 1 Week Amaury Wells DO [Primary Care Provider] - 1-2 days Patient Instructions/Handouts: Ischemic Stroke (DC) Discharge Disposition: HOME SELF-CARE
--- NOTE | 2023-09-06 11:46 | CDI ---
Documentation Clarification Form Date: 09/06/2023 From: Anisha Martinez Phone: [phone] Admit Date: 08/31/2023 10:43:00 AM Patient Name: Malcolm Vallejo Visit Number: [id number] Discharge Date: 09/01/2023 02:27:00 PM ATTENTION: The Clinical Documentation Specialists (CDI) and [facility] Coding Staff appreciate your assistance in clarifying documentation. Please respond to the clarification below the line at the bottom and electronically sign. The CDI & [facility] Coding staff will review the response and follow-up if needed. Please note: Queries are made part of the Legal Health Record. If you have any questions, please contact the author of this message via ITS. Dr. Ternt Baca: TIA is documented in the Discharge Summary 08/31. Additional clarification regarding the etiology of the TIA is requested. Patient history/risk factors: 78-year-old male with history of DM2, HTN, left side weakness, stroke, chronic right ICA occlusion, stent to left proximal ICA, who presents with left sided drooling and some asymmetry, left side weakness that improved during transport Clinical indicators: 08/30 Neurology consult, Plan: "It is uncertain if patient has stroke/TIA or some other event. At present patient's examination is probably back to baseline." 08/31 Discharge Summary, Assessment plan: "Probable TIA. Patient has a baseline flattening of left nasolabial fold and some left-sided weakness from prior stroke. As per the daughter. Continue Plavix and aspirin. 2D echo unremarkable. EEG negative for epileptiform activity. Chronic right ICA occlusion. Stent to proximal left ICA without stenosis." 08/30 CT Brain, Impression: "1. No acute intracranial process. 2. Remote right MCA territory injury with encephalomalacia involving the temporal lobe." 08/30 CTA Head and Neck, Impression: "1. Right ICA occlusion. 2. Stent proximal left ICA without hemodynamic significant stenosis." 08/31 ECHO: EF 55-60%, Conclusions: "Poor, technically difficult study. Limited views. Left ventricular ejection fraction is estimated at 55-60 %. Calcific aortic valve which is not well visualized. At least moderate aortic stenosis with mean gradient of 31 mmHg, mild aortic regurgitation" Treatment: Aspirin 324mg oral once 08/30 then 81mg daily start 6/27 Plavix 75mg oral daily start 08/30 Lipitor 40mg oral at HS start 08/30 Please clarify the etiology of the TIA, if known: [ x ] Carotid Stenosis/occlusion [ ] Other (please specify): [ ] Etiology unknown or Unable to determine MTDD
== END 2023-09-01 14:27 | disposition home or self-care (01) | DRG 68 ==
LOC: EC 08:39 → 3SCARD 10:43
PROVIDERS: ADMIT Hospitalist; ATTEND Hospitalist
PROC: 4A10X4Z Monitoring of Central Nervous Electrical Activity, External Approach (ICD-10-PCS; principal; 2023-09-01)
DX: I65.21 Occlusion and stenosis of right carotid artery (principal); F03.90 Unspecified dementia, unspecified severity, without behavioral disturbance, psychotic disturbance, mood disturbance, and anxiety; Z66 Do not resuscitate; E78.5 Hyperlipidemia, unspecified; Z87.820 Personal history of traumatic brain injury; I10 Essential (primary) hypertension; I69.392 Facial weakness following cerebral infarction; E11.9 Type 2 diabetes mellitus without complications; K21.9 Gastro-esophageal reflux disease without esophagitis; R00.1 Bradycardia, unspecified; I08.3 Combined rheumatic disorders of mitral, aortic and tricuspid valves; Z79.02 Long term (current) use of antithrombotics/antiplatelets; Z79.82 Long term (current) use of aspirin; Z79.84 Long term (current) use of oral hypoglycemic drugs; Z79.899 Other long term (current) drug therapy
CPT/HCPCS: 36415; 70450; 70496; 70498; 71046; 80053; 82550; 83735; 84484; 85025; 85610; 85730; 93005; 93306; 95816; 96372; 99291

== ENCOUNTER → 2023-12-21 | Outpatient (CLI) | payer OTHER ==
--- NOTE | 2023-12-21 10:57 | US ---
EXAMINATION TYPE: US Aorta Screening DATE OF EXAM: 12/21/2023 COMPARISON: CT Chest CLINICAL INDICATION: Male, 78 years old with history of I71.9 AAA WO RUPTURE; AAA screening TECHNIQUE: Multiple sonographic images of the abdominal aorta are obtained with grayscale and color D oppler imaging. 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 IMPRESSION: No evidence of abdominal aortic aneurysm. Ectasia of the distal abdominal aorta measuring up to 2.4 c m. [facility], , 12/21/2023 10:55 AM
== END | disposition home or self-care (01) ==
LOC: RADUSWWP 10:18
PROVIDERS: ATTEND Internal Medicine Hospice and Palliative Medicine
DX: I71.9 Aortic aneurysm of unspecified site, without rupture (principal)
CPT/HCPCS: 76706